=== PATIENT | female | born 1990 | race Caucasian/White ===

== ENCOUNTER 2019-05-19 13:02 | Inpatient (IN) ==
[2019-05-19] MEDS ORDERED: IOPAMIDOL 100 ML BOTTLE IV ONE (13:03)
[2019-05-19] MEDS ORDERED: ONDANSETRON 4 MG/2 ML VIAL IV ONE ×2 (13:08→16:35)
[2019-05-19] MEDS ORDERED: 0.9 % SODIUM CHLORIDE 1,000 ML IV ONE ×2 (13:08→19:13)
--- NOTE | 2019-05-19 13:23 | Emergency Department Note ---
Abdominal Pain HPI - General Chief Complaint: Abdominal Pain Stated Complaint: Side and back pain Time Seen by Provider: 05/19/19 13:08 Mode of arrival: wheelchair - History of Present Illness HPI Narrative: 29-year old patient presenting to the [facility] emergency department with a chief complaint of abdominal pain. Patient reports the pain is acute. Patient has had symptoms for days. Patient noting pain is sharp. Patient reporting pain is severe. Patient with exacerbating factors of time, states she was recently seen here for the same thing a couple days ago. Patient with ameliorating factors of pain medication. Patient with associated symptoms of feeling syncopal. Pt with witnessed "syncopal event" pt retained intentional motor function during the entire episode. Pt stated she felt like passing out and then closed her eyes and manintained truncal stability as well as purposeful LE motor function. Pt without loss of bowel bladder control also without sterotyped activity consistent with partial seizure disorder. Patient without associated symptoms of nausea, vomiting, diarrhea, decreased appetite, fever, blood in stool, hematemesis, constipation, dysuria, frequency, hematuria, weight loss, cough, shortness of breath, orthopnea, exertional component. - Related Data Home Medications Medication Instructions Recorded Confirmed buPROPion [Wellbutrin Xl] 450 mg PO DAILY 05/19/19 05/19/19 Allergies Allergy/AdvReac Type Severity Reaction Status Date / Time No Known Drug Allergies Allergy Verified 03/22/19 11:41 Review of Systems All systems ED: reviewed and negative except as stated. Abdominal Pain PMH - Past Medical History PMFSH Narrative: All Active Problems Abdominal pain (Acute) Elevated lipase (Acute) Elevated LFTs (Acute) Medical history: Reports: other (History of a bundle branch block but does not know anything more about it. Recently saw fundraising director and was cleared.) - Social History Smoking status: Former smoker Alcohol use: Reports: Rarely (Patient originally states that she used to be an alcoholic and was a heavy alcoholic for 5 or 6 years. States she stopped drinking 5 years ago. Originally stated she has had [place] no alcohol in 5 years but states now that she did have a glass of wine a month or so ago.) Drug use: Reports: none Physical Exam Vital signs are assessed for evidence of hemodynamic instability. General: Alert, interactive, appropriate Head: Atraumatic, normocephalic Eyes: Extraocular movements intact, PERRLA Neck: Trachea midline, full range of motion Chest: Symmetrical chest wall rise, clear to auscultation bilateral without wheezes rales crackles or rubs Cardiovascular: Patient with excellent perfusion to the extremities, regular rate and rhythm without M/R/G Abdomen: Patient with tenderness to the abdomen diffusely, patient without exam suggestive of peritonitis, nondistended, normoactive bowel sounds, no masses, no hepatosplenomegaly, no rebound, and no guarding Extremities: Full range of motion joints, warm well perfused Neuro: Alert, oriented x3, cranial nerves II through XII grossly intact, normal gait Psychiatric: Normal affect normal mood Course Vital Signs Temperature 97.1 F 05/19/19 13:03 Pulse Rate 71 05/19/19 13:03 Respiratory Rate 18 05/19/19 13:03 Blood Pressure 114/78 05/19/19 13:03 Pulse Oximetry (%) 95 05/19/19 13:03 Temperature 97.1 F 05/19/19 13:03 Pulse Rate 69 05/19/19 20:00 Respiratory Rate 18 05/19/19 13:03 Blood Pressure 125/91 05/19/19 20:00 Pulse Oximetry (%) 100 05/19/19 20:00 Abdominal Pain - MDM Narrative Medical decision making narrative: Initial work-up for this issue included consideration for the following laboratory evaluation CBC, CMP, lipase, urinalysis as well as imaging. Differential diagnosis considered included: Obstruction, perforation, mesenteric ischemia, Crohn's disease, ulcerative colitis, viral gastroenteritis, spontaneous bacterial peritonitis, ketoacidosis, adrenal insufficiency, foodborne illness, IBS, constipation, AAA, abdominal compartment syndrome, abdominal migraine, chronic abdominal pain, colonic pseudoobstruction, zoster, hypercalcemia, hypothyroidism, appendicitis, diverticulitis, nephrolithiasis, pyelonephritis, acute urinary retention, cystitis, colitis, pelvic inflammatory disease, ovarian torsion, ruptured ovarian cyst, endometriosis, endometritis, GC/chlamydia, fibroids, ovarian hyperstimulation, malignancy, salpingitis, tubo- ovarian abscess. After the above evaluation the conclusion for this case is pancreatitis by elevated lipase and abnormal CT scan, pt with gallstones but no dilated duct, denies significant alcohol intake, denies history of abnormal lipids. Pt with pain control using Toradol, fluids, and antiemetics. I discussed the case with Dr. Crook and the consensus opinion at this point time is patient requires admission and MRCP in the morning as well as hepatitis panel and expectant management with likely cholecystectomy. Discussed case with Dr. Jack who will admit the patient with Dr. Crook consulting. - Lab Data Result diagrams: 05/19/19 13:15 05/19/19 13:15 Lab Results 05/19/19 05/19/19 05/19/19 Range/Units 13:15 13:15 15:12 WBC 13.7 H (4.5-11.0) K/mcL RBC 5.62 H (4.00-5.20) M/mcL Hgb 15.6 H (12.0-15.0) g/dL Hct 45.5 (36.0-48.0) % MCV 81.0 (80.0-100.0) fL MCH 27.8 (26.0-34.0) pg MCHC 34.3 (31.0-36.0) g/dL RDW 13.1 (11.5-14.5) % Plt Count 479 H (140-440) K/mcL MPV 9.6 (7.4-10.4) fL Gran % 75.1 (38.0-78.0) % Lymph % (Auto) 16.3 (15.5-49.0) % Jasper % (Auto) 4.4 (1.0-12.0) % Eos % (Auto) 4.1 (0.0-7.0) % Baso % (Auto) 0.1 (0.0-2.0) % Gran # 10.3 H (1.8-8.0) K/mcL Lymph # (Auto) 2.2 (1.5-4.8) K/mcL Jasper # (Auto) 0.6 (0.1-0.9) K/mcL Eos # (Auto) 0.6 (0.0-0.7) K/mcL Baso # (Auto) 0 (0.0-0.3) K/mcL Sodium 138 (133-145) mmol/L Potassium 3.3 (3.3-5.1) mmol/L Chloride 100 (96-108) mmol/L Carbon Dioxide 18 L (22-30) mmol/L Anion Gap 20.0 H (8-16) BUN 11 (6-20) mg/dl Creatinine 0.7 (0.6-1.1) mg/dl GFR Calculation 115 Glucose 183 H (70-105) mg/dL Calcium 9.8 (8.6-10.4) mg/dl Total Bilirubin 3.5 H (0.0-1.0) mg/dL AST 1189 H (0-37) U/l ALT 1721 H (0-40) U/l Alkaline Phosphatase 209 H (39-117) U/L Total Protein 8.0 (5.9-8.4) gm/dL Albumin 4.7 (3.2-5.2) gm/dL Globulin 3.3 (2.2-3.7) gm/dL Albumin/Globulin Ratio 1.4 (1.0-2.3) Lipase 7120 H (7-60) U/L Urine Opiates Screen None detected (NONDETECTED) Ur Opiates Confirm Not Reportable Ur Oxycodone Screen None detected (NONDETECTED) Urine Methadone Screen None detected (NONDETECTED) Ur Methadone Confirm Not Reportable Ur Barbiturates Screen None detected (NONDETECTED) Ur Barbiturate Confirm Not Reportable Ur Phencyclidine Scrn None detected (NONDETECTED) Urine PCP Confirm Not Reportable Ur Amphetamines Screen None detected (NONDETECTED) U Amphetamines Confirm Not Reportable U Benzodiazepines Scrn None detected (NONDETECTED) U Benzodiazepine Confm Not Reportable Urine Cocaine Screen None detected (NONDETECTED) Urine Cocaine Confirm Not Reportable U Cannabinoids Confirm Not Reportable U Marijuana (THC) Screen None detected (NONDETECTED) Disposition Pt seen by STUDENT WORKER/PA only: No Clinical Impression: Pancreatitis Qualifiers: Chronicity: acute Pancreatitis type: other Acute pancreatitis complication: no infection or necrosis Qualified Code(s): K85.80 - Other acute pancreatitis without necrosis or infection Abdominal pain Qualifiers: Abdominal location: upper abdomen, unspecified Qualified Code(s): R10.10 - Upper abdominal pain, unspecified Disposition: Xfer As Outpt/Obs ([facility]) Condition: Good Instructions: Pancreatitis (ED) Referrals: Suki Hager MD [Primary Care Provider] -
[2019-05-19 13:41] LABS: Basophils # (Auto) 0 K/mcL (0.0-0.3); Basophils % (Auto) 0.1 % (0.0-2.0); Eosinophils # (Auto) 0.6 K/mcL (0.0-0.7); Eosinophils % (Auto) 4.1 % (0.0-7.0); Granulocytes % (Auto) 75.1 % (38.0-78.0); Hematocrit 45.5 % (36.0-48.0); Hemoglobin 15.6 g/dL (12.0-15.0); Lymphocytes # (Auto) 2.2 K/mcL (1.5-4.8); Lymphocytes % (Auto) 16.3 % (15.5-49.0); Mean Corpuscular HGB Conc 34.3 g/dL (31.0-36.0); Mean Platelet Volume 9.6 fL (7.4-10.4); Monocytes # (Auto) 0.6 K/mcL (0.1-0.9); Monocytes % (Auto) 4.4 % (1.0-12.0); Platelet Count 479 K/mcL (140-440); RBC 5.62 M/mcL (4.00-5.20); Red Cell Distribution Width 13.1 % (11.5-14.5); WBC 13.7 K/mcL (4.5-11.0)
[2019-05-19 14:00] LABS: Albumin 4.7 gm/dL (3.2-5.2); Albumin/Globulin Ratio 1.4 (1.0-2.3); Alkaline Phosphatase 209 U/L (39-117); Bilirubin,Total 3.5 mg/dL (0.0-1.0); Blood Urea Nitrogen 11 mg/dl (6-20); Calcium 9.8 mg/dl (8.6-10.4); Carbon Dioxide 18 mmol/L (22-30); Chloride 100 mmol/L (96-108); Globulin 3.3 gm/dL (2.2-3.7); Glomerular Filtration Rate 115; Glucose 183 mg/dL (70-105)
[2019-05-19] MEDS ORDERED: KETOROLAC 30 MG/ML VIAL IV ONE ×2 (14:07→19:53)
[2019-05-19 14:50] LABS: ALT/SGPT 1721 U/l (0-40); AST/SGOT 1189 U/l (0-37)
[2019-05-19 15:55] LABS: Amphetamine Screen,Urine NONE DETECTED (NONDETECTED); Barbiturate Screen,Urine NONE DETECTED (NONDETECTED); Benzodiazepines Screen,Urine NONE DETECTED (NONDETECTED); Cannabinoid Screen,Urine NONE DETECTED (NONDETECTED); Cocaine Screen,Urine NONE DETECTED (NONDETECTED); Opiate Screen,Urine NONE DETECTED (NONDETECTED); Oxycodone, Urine Screen NONE DETECTED (NONDETECTED); Phencyclidine Screen,Urine NONE DETECTED (NONDETECTED)
--- NOTE | 2019-05-19 18:04 | Cat Scan Report ---
History: Pancreatitis with pain radiating to the back TECHNIQUE: The patient was imaged following oral and intravenous contrast. Sagittal and coronal reformats were created. FINDINGS: The liver and spleen are normal in size and homogeneous. There is a 3 x 6 mm stone within the lumen of the gallbladder which has developed since a prior CT done on 03/22/19. Along the anterior wall of the gallbladder there is a 6 mm soft tissue nodule. This appears to be within the wall. On the prior CT there appear to be adjacent to but separate from the gallbladder. This is a nonspecific finding. The remainder the gallbladder wall is normal and there is no para cholecystic fluid collection. The bile ducts are nondilated and there are no stones within the common bile duct. There is mild generalized swelling throughout the pancreas. Mild edema is seen in the head and uncinate process. There is no pseudocyst. The pancreatic duct is nondilated and there are no calcifications in the pancreas. There is mild inflammation of the retroperitoneal fat surrounding the pancreas. The pancreatitis has developed since prior study done on 03/22/19. The adrenals and kidneys are normal. The aorta and inferior vena cava are normal. Small amount of ascites is present in the lower pelvis. No abnormality seen within the uterus, ovaries or bladder. The bowel gas pattern is normal. There is mild disc space narrowing at L3-4. IMPRESSION: Acute pancreatitis Cholelithiasis nonspecific 6 mm soft tissue nodule along the anterior wall of the fundus of the gallbladder Dr. Mayberry was called with the results Interpreted and Authenticated by: Abelardo Wheat 05/19/19
[2019-05-19 20:58] LABS: Triglycerides 170 mg/dl (<150)
[2019-05-19 21:13] LABS: Hepatitis B Surface Antigen NEGATIVE (NEGATIVE); Hepatitis C Virus Antibody NON REACTIVE (NEGATIVE)
--- NOTE | 2019-05-19 21:15 | Internal Med History&Physical ---
Medical - H&P: HPI Patient information: Note initiated : 05/19/19 at 9:07 pm Service Date, if different from initiated Date: [] Patient: Samaria Mayorga 29 y/o F admitted on for Side And Back Pain. Chief Complaint: [] History of present illness: Ms. Mayorga is a 29 year old F Who presents with severe abdominal pain that has been almost constant since yesterday. She describes the pain as initiating the right upper quadrant as severe burning pinching pain which typically wax and wane until yesterday. Has started radiating over the left upper quadrant as well. States she has had similar episodes in the past 2 months sometimes weekly. The last less than an hour. Most recent one started yesterday. She did have aches and toast for lunch started about an hour after that. She did drink alcohol on Friday. She typically drinks half a bottle of wine twice a week. She started drinking alcohol about a year ago prior to that she did not drink for 6 years. She denies any new medications or drug use. She gave about a year and a half ago. Does mention that her sister had to get her gallbladder removed after she gave this well. Symptoms often happen at night. And she states maybe 1 to 2 days after drinking but unsure if they correlate. She states the pain radiates around to the back. In the ER she had CT done which showed pancreatitis and cholelithiasis, as well as elevated liver enzymes greater than 25 times upper limit of normal. Lipase is quite elevated at 7000 and bilirubin 3.5. Case is discussed with Dr. Crook, based on presentation and imaging is felt that this is related to gallstone pancreatitis. Plan for eventual cholecystectomy. I did discuss case with Dr. Samayoa pompom maker was surprised on the elevation of liver enzymes and recommended Hepatitis panel and MRCP, ordered for tomorrow. Patient's vital signs are stable. She appears comfortable in bed. Patient denies needle use or exposure to hepatitis B. She did have an episode of nausea vomitus morning couple times in the ER. And some fever chills initially which is improved. Review of Systems: Pertinent positives as above. Denies headache/chest pain/cough/dyspnea/diarrhea. Remaining 10 point review of system reviewed negative Medical - H&P: PMH Medical history: Past medical history: Depression Surgical history: None Family history: Mother heart disease Father with alcoholism Social history: Patient denies tobacco drinks alcohol several times a week half a bottle of wine Denies drug use Medical - H&P: Meds Home Medications Medication Instructions Recorded Confirmed Type buPROPion [Wellbutrin Xl] 450 mg PO DAILY 05/19/19 05/19/19 History valACYclovir [Valtrex] 500 mg PO DAILY 05/19/19 05/19/19 History Allergies Allergy/AdvReac Type Severity Reaction Status Date / Time No Known Drug Allergies Allergy Verified 03/22/19 11:41 Medical - H&P: Exam - Constitutional Vitals: Temp Pulse Resp BP Pulse Ox 97.1 F 91 H 18 130/88 98 05/19/19 13:03 05/19/19 20:45 05/19/19 13:03 05/19/19 20:45 05/19/19 20:45 Exam: General: Alert, Awake, No acute Distress Eyes/N/T: EOMI, PEERL, Head/Neck: neck supple, normocephalic atraumatic CV: RRR, No murmurs, normal s1/s2 Pulm: Clear b/l, no wheezing/rhonchi/rales Abd: soft, TTP severe in epigastrium and moderate RUQ, Ext: no clubbing/cyanosis/edema Neuro: Alert, no focal deficits, moves all extremities, CN 2-12 grossly intact, symmetrical strength b/l upper/lower, sensations intact b/l upper/lower Skin: warm/dry Medical - H&P: Reslt - Labs CBC & Chem 7: 05/19/19 13:15 05/19/19 13:15 Labs: Short CBC 05/19/19 Range/Units 13:15 WBC 13.7 H (4.5-11.0) K/mcL Hgb 15.6 H (12.0-15.0) g/dL Hct 45.5 (36.0-48.0) % Plt Count 479 H (140-440) K/mcL BMP 05/19/19 13:15 Sodium 138 Potassium 3.3 Chloride 100 Carbon Dioxide 18 L BUN 11 Creatinine 0.7 Glucose 183 H Calcium 9.8 Liver Function 05/19/19 Range/Units 13:15 Total Bilirubin 3.5 H (0.0-1.0) mg/dL AST 1189 H (0-37) U/l ALT 1721 H (0-40) U/l Alkaline Phosphatase 209 H (39-117) U/L Albumin 4.7 (3.2-5.2) gm/dL - Impressions CT abdomen with pancreatitis and cholelithiasis Medical - H&P: A/P - Narrative A/P Narrative: A: *Acute pancreatitis: suspect gallstone pancreatitis vs ?etoh -Trip/Calcium ok, no trauma/steroids, UDS neg -lipase 7000 on admit -Dixon's score low @2 *Transaminitis, Hepatocellular: 2/2 ?above vs Viral vs *Hyperbilirubinemia: 2/2 above *Depression * P: -aggressive IVF's -sips/chips -pain control, antiemetics -Dr. Crook following for eventual cholecystectomy -MRCP in AM -Hepatitis panel pending -If LFT's/bili worsen will need further w/u and GI consult, possibly transfer -case discussed with GI -ppx: SCD/Ambulation
[2019-05-19 21:20] LABS: Lactate Dehydrogenase 922 U/L (94-250)
[2019-05-19] MEDS ORDERED: POTASSIUM CHLORIDE 20 MEQ TABLET PO PRN (22:19)
[2019-05-19] MEDS ORDERED: SENNOSIDES 1 TABLET PO PRN (22:19)
[2019-05-19] MEDS ORDERED: PROMETHAZINE 12.5 MG SUPP.RECT PR PRN (22:19)
[2019-05-19] MEDS ORDERED: POTASSIUM CHLORIDE 40 MEQ in DEXTROSE 5% IN WATER 500 ML IV PRN (22:19)
[2019-05-19] MEDS ORDERED: MAGNESIUM SULFATE 2 GM/50 ML BAG IV PRN (22:19)
[2019-05-19] MEDS ORDERED: POLYETHYLENE GLYCOL 3350 17 GM PACKET PO PRN (22:19)
[2019-05-19] MEDS: 0.9 % SODIUM CHLORIDE 10 ML SYRINGE IV SCH (22:24)
[2019-05-19] MEDS: 0.9 % SODIUM CHLORIDE 1,000 ML IV SCH (22:31)
[2019-05-19] MEDS: ONDANSETRON 4 MG/2 ML VIAL IV PRN (22:46)
[2019-05-19] MEDS: DOCUSATE SODIUM 100 MG CAPSULE PO SCH (22:48)
[2019-05-19 23:58] LABS: Prothrombin Time 13.7 sec (11.9-14.5)
[2019-05-20] MEDS: 0.9 % SODIUM CHLORIDE 1,000 ML IV SCH ×5 (02:31→20:54)
[2019-05-20] MEDS: ONDANSETRON 4 MG/2 ML VIAL IV PRN ×3 (03:00→19:37)
[2019-05-20] MEDS: 0.9 % SODIUM CHLORIDE 10 ML SYRINGE IV SCH ×3 (05:38→22:02)
[2019-05-20 06:26] LABS: INR 1.2 (0.9-1.1); Prothrombin Time 15.3 sec (11.9-14.5)
[2019-05-20 06:29] LABS: Basophils # (Auto) 0 K/mcL (0.0-0.3); Basophils % (Auto) 0.3 % (0.0-2.0); Eosinophils # (Auto) 0.1 K/mcL (0.0-0.7); Eosinophils % (Auto) 0.9 % (0.0-7.0); Granulocytes % (Auto) 85.9 % (38.0-78.0); Hematocrit 36.2 % (36.0-48.0); Hemoglobin 11.9 g/dL (12.0-15.0); Lymphocytes # (Auto) 1.2 K/mcL (1.5-4.8); Lymphocytes % (Auto) 9.5 % (15.5-49.0); Mean Cell Volume 81.3 fL (80.0-100.0); Mean Corpuscular HGB Conc 32.7 g/dL (31.0-36.0); Mean Platelet Volume 9.4 fL (7.4-10.4); Monocytes # (Auto) 0.4 K/mcL (0.1-0.9); Monocytes % (Auto) 3.4 % (1.0-12.0); Platelet Count 288 K/mcL (140-440); RBC 4.46 M/mcL (4.00-5.20); Red Cell Distribution Width 13.3 % (11.5-14.5); WBC 12.4 K/mcL (4.5-11.0)
[2019-05-20 07:21] LABS: AST/SGOT 412 U/l (0-37); Albumin 3.7 gm/dL (3.2-5.2); Albumin/Globulin Ratio 1.5 (1.0-2.3); Alkaline Phosphatase 176 U/L (39-117); Bilirubin,Direct 1.5 mg/dL (0.0-0.3); Bilirubin,Total 2.1 mg/dL (0.0-1.0); Blood Urea Nitrogen 6 mg/dl (6-20); Calcium 7.5 mg/dl (8.6-10.4); Carbon Dioxide 21 mmol/L (22-30); Chloride 106 mmol/L (96-108); Globulin 2.4 gm/dL (2.2-3.7); Glomerular Filtration Rate 129; Glucose 94 mg/dL (70-105); Lactate Dehydrogenase 384 U/L (94-250); Phosphorous 2.7 mg/dL (2.7-4.5); Triglycerides 57 mg/dl (<150); Uric Acid 3.4 mg/dL (2.5-8.0)
[2019-05-20 07:36] LABS: ALT/SGPT 1077 U/l (0-40)
--- NOTE | 2019-05-20 07:45 | Internal Med Progress Note ---
Medical - PN: Subj Patient information: Note initiated : 05/20/19 at 7:38 am Service Date, if different from initiated Date: [] Patient: Bri Mayorga a 29 y/o F admitted on 05/19/19 for Side And Back Pain. Chief Complaint: [] Interval history: Ms. Mayorga is a 29 year old F Who presents with severe abdominal pain that has been almost constant since yesterday. She describes the pain as initiating the right upper quadrant as severe burning pinching pain which typically wax and wane until yesterday. Has started radiating over the left upper quadrant as well. States she has had similar episodes in the past 2 months sometimes weekly. The last less than an hour. Most recent one started yesterday. She did have aches and toast for lunch started about an hour after that. She did drink alcohol on Friday. She typically drinks half a bottle of wine twice a week. She started drinking alcohol about a year ago prior to that she did not drink for 6 years. She denies any new medications or drug use. She gave about a year and a half ago. Does mention that her sister had to get her gallbladder removed after she gave this well. Symptoms often happen at night. And she states maybe 1 to 2 days after drinking but unsure if they correlate. She states the pain radiates around to the back. In the ER she had CT done which showed pancreatitis and cholelithiasis, as well as elevated liver enzymes greater than 25 times upper limit of normal. Lipase is quite elevated at 7000 and bilirubin 3.5. Case is discussed with Dr. Crook, based on presentation and imaging is felt that this is related to gallstone pancreatitis. Plan for eventual cholecystectomy. I did discuss case with Dr. Samayoa automatic equipment technician was surprised on the elevation of liver enzymes and recommended Hepatitis panel and MRCP, ordered for tomorrow. Patient's vital signs are stable. She appears comfortable in bed. Patient denies needle use or exposure to hepatitis B. She did have an episode of nausea vomitus morning couple times in the ER. And some fever chills initially which is improved. 05/20 Able to get some sleep last night. Abdominal pain still present but better controlled with pain medications. Has some nausea this morning but no vomiting. All labs improving today. Awaiting MRCP today. Review of Systems: denies headache/fever/chills/vomiting/chest pain/cough/dyspnea/diarrhea. Otherwise see above. - Constitutional Vitals: Vital Signs Temp Pulse Resp BP Pulse Ox 98.4 F 91 H 16 119/71 98 05/20/19 07:08 05/20/19 07:08 05/20/19 07:08 05/20/19 07:08 05/20/19 07:08 Period Temp Pulse Resp BP Sys/Martinez Pulse Ox Last 24 Hr 97.1 F-98.5 F 57-91 16-18 114-130/68-91 95-100 Intake and Output 05/19/19 05/20/19 05/20/19 21:59 05:59 13:59 Intake Total 1999 1060 1000 Balance 1999 1060 1000 Weight 68.492 kg Intake & Output: Intake & Output 05/19/19 05/20/19 05/20/19 21:59 05:59 13:59 Intake Total 1999 1060 1000 Balance 1999 1060 1000 Weight 68.492 kg Intake: IV 1999 1000 1000 Sodium Chloride 0.9% 1,000 ml @ 1999 1000 1000 250 mls/hr IV .Q4H [facility] Rx#: [id number] Oral 60 Other: Urine Appearance Clear Urine Color Bright Yellow Urine Odor Normal # Voids 1 1 # Emeses 3 Exam: General: Alert, Awake, No acute Distress Eyes/N/T: EOMI, , Head/Neck: neck supple, CV: RRR, No murmurs, Pulm: Clear b/l, no wheezing/rhonchi/rales Abd: soft, TTP epigastrium/RUQ Ext: no clubbing/cyanosis/edema Neuro: Alert, no focal deficits, moves all extremities, Skin: warm/dry Medical - PN: Obj Da - Labs CBC & Chem 7: 05/20/19 04:51 05/20/19 04:51 Labs: Abnormal Lab Results 05/20/19 05/20/19 05/20/19 04:51 04:51 04:51 WBC 12.4 H RBC Hgb 11.9 L Plt Count Gran % 85.9 H Lymph % (Auto) 9.5 L Gran # 10.7 H Lymph # (Auto) 1.2 L PT 15.3 H INR 1.2 H Carbon Dioxide 21 L Anion Gap Creatinine 0.5 L Glucose Calcium 7.5 L Total Bilirubin 2.1 H Direct Bilirubin 1.5 H GGT 520 H AST 412 H ALT 1077 H Alkaline Phosphatase 176 H Lactate Dehydrogenase 384 H Triglycerides Lipase 05/20/19 05/19/19 05/19/19 04:51 13:26 13:15 WBC RBC Hgb Plt Count Gran % Lymph % (Auto) Gran # Lymph # (Auto) PT INR Carbon Dioxide Anion Gap Creatinine Glucose Calcium Total Bilirubin Direct Bilirubin 2.7 H GGT AST ALT Alkaline Phosphatase Lactate Dehydrogenase 922 H Triglycerides 170 H Lipase 927 H 05/19/19 05/19/19 13:15 13:15 WBC 13.7 H RBC 5.62 H Hgb 15.6 H Plt Count 479 H Gran % Lymph % (Auto) Gran # 10.3 H Lymph # (Auto) PT INR Carbon Dioxide 18 L Anion Gap 20.0 H Creatinine Glucose 183 H Calcium Total Bilirubin 3.5 H Direct Bilirubin GGT AST 1189 H ALT 1721 H Alkaline Phosphatase 209 H Lactate Dehydrogenase Triglycerides Lipase 7120 H Meds: Medications Bupropion HCl (Wellbutrin Xl) 450 mg PO DAILY [facility] Docusate Sodium (Colace) 100 mg PO BID [facility] Last Admin: 05/19/19 22:48 Dose: 100 mg Documented by: Potassium Chloride 40 meq/ (Dextrose) 520 mls @ 130 mls/hr IV UD PRN PRN Reason: Potassium < 3 Magnesium Sulfate (Magnesium Sulfate) 2 gm in 50 mls @ 50 mls/hr IV UD PRN PRN Reason: Magnesium </= 1.6 Sodium Chloride (Sodium Chloride 0.9%) 1,000 mls @ 250 mls/hr IV .Q4H [facility] Last Admin: 05/20/19 06:56 Dose: 250 mls/hr Documented by: Morphine Sulfate (Morphine) 0 mg IV Q3HP PRN PRN Reason: Pain Last Admin: 05/20/19 06:55 Dose: 2 mg Documented by: Ondansetron HCl (Zofran) 4 mg IV Q4HP PRN PRN Reason: Nausea And Vomiting Last Admin: 05/20/19 06:55 Dose: 4 mg Documented by: Polyethylene Glycol (Miralax) 17 gm PO DAILYP PRN PRN Reason: Constipation Potassium Chloride (Kdur) 40 meq PO UD PRN PRN Reason: Potssium is 3-3.5 Potassium Chloride (Kdur) 40 meq PO UD PRN PRN Reason: Potassium < 3 Promethazine HCl (Phenergan) 12.5 mg DC Q6HP PRN PRN Reason: Pain Senna (Senokot) 2 tab PO HSP PRN PRN Reason: Constipation Sodium Chloride (Saline Flush) 10 ml IV Q8 [facility] Last Admin: 05/20/19 05:38 Dose: Not Given Documented by: Medical - PN: A/P - Time Spent With Patient Total time spent is greater than 50% in coordination of care (as documented) at patient's floor/unit and/or counseling patient: - Narrative A/P Narrative: A: *Acute pancreatitis: suspect gallstone pancreatitis vs ?etoh -Trigs/Calcium ok, no trauma/steroids, UDS neg -lipase 7000 on admit -Uri's score low @2 on admit *Transaminitis, Hepatocellular: 2/2 above from likely biliary stone passing vs Viral vs -hepatitis panel negative, UDS/APAP neg -improved *Hyperbilirubinemia: 2/2 above -2.1<3.5 *Depression * P: -aggressive IVF's will to decrease today -sips/chips, advance to clears for lunch -pain control, antiemetics -Dr. Crook following for eventual cholecystectomy -MRCP pending -case discussed with GI -ppx: SCD/Ambulation Medical - PN: Qual - Stroke Symptom Onset Unknown: No - VTE Deep Vein Thrombosis/Pulmonary Embolism Present on Admission: No
[2019-05-20 09:12] LABS: Appearance,Urine CLEAR; Bacteria,Urine 0 /hpf (0); Color,Urine AMBER; Culture Indicated,Urine NO; Glucose,Urine (UA) NEGATIVE (NEG); Ictotest,Urine POS (NEG); Ketones,Urine NEG (NEG); Leukocyte Esterase,Urine NEG /uL (NEG); Mucus,Urine MANY /hpf (0); Nitrate,Urine NEG (NEG); Protein,Urine NEG (NEG); Specific Gravity,Urine 1.018 (1.000-1.035); Urine Blood 0.2 mg/dL (<0.03); Urine RBC 1 /hpf (0-1); Urine Squamous Epithelial Cell 10 /hpf (0-4); Urine WBC 5 /hpf (0-4)
[2019-05-20] MEDS ORDERED: PROMETHAZINE 25 MG/ML VIAL IV PRN (09:31)
[2019-05-20] MEDS: HYDROmorphone 2 MG/ML VIAL IV PRN ×6 (10:07→23:55)
[2019-05-20] MEDS: DOCUSATE SODIUM 100 MG CAPSULE PO SCH ×2 (10:08→20:50)
[2019-05-20] MEDS: buPROPion 150 MG TAB.XL.24H PO SCH ×3 (10:08→11:55)
--- NOTE | 2019-05-20 10:29 | Magnetic Resonance Report ---
History: Pancreatitis, elevated liver enzymes, elevated lipase and bilirubin levels, nausea and right upper quadrant pain TECHNIQUE: Multiplanar imaging was performed using multiple pulse sequences. Reformatted MRCP images were created. FINDINGS: The liver is normal in size and slightly heterogeneous. There is no evidence of a mass. The spleen is normal in size and homogeneous. There is a nodule in the wall of the distal gallbladder fundus, which extends exophytically. It Measures approximately 9 x 12 mm in size. This was seen on yesterday's CT scan but is more apparent on today's MRI. The small stone seen within the gallbladder on yesterday's CT is again seen layering posteriorly. Adjacent wall is not abnormally thickened. The intra and extrahepatic bile ducts are normal in caliber. The common duct measures up to 4 mm. There is no evidence of a stone or mass in or adjacent to the distal common bile duct. The pancreas is swollen and there is mild diffuse inflammation. There is edema in the surrounding retroperitoneal fat. Is also trace amount of ascites anterior to the right kidney and adjacent to the inferior aspect of the right lobe of the liver. No abscess is present and there is no pseudocyst. The pancreatic duct is nondilated. There is no evidence of pancreas divisum The adrenals and kidneys are normal. The aorta is normal in caliber. IMPRESSION: Mild generalized pancreatitis with surrounding edema/inflammation in a tiny amount ascites. Nonspecific subtle heterogeneity of the liver parenchyma Cholelithiasis Soft tissue mass in the wall of the gallbladder fundus. Nondilated bile ducts and pancreatic duct Interpreted and Authenticated by: Abelardo Wheat 05/20/19
[2019-05-20] MEDS: POTASSIUM CHLORIDE 20 MEQ TABLET PO PRN (15:54)
--- NOTE | 2019-05-20 17:45 | General Surgery Consult Note ---
History of Present Illness Patient information: Note initiated : 05/20/19 at 5:43 pm Service Date, if different from initiated Date: [] Patient: Bri Mayorga 29 y/o F admitted on 05/19/19 for Side And Back Pain. Chief Complaint: [] Reason for consult: abdominal pain Requesting physician: Royal Jack History of present illness: 29-year-old female admitted with history of upper abdominal pain with nausea and vomiting dating back to Friday. The pain became increasing in severity. She has a history of increased alcohol intake recently. Evaluation revealed markedly elevated amylase, lipase and LFTs. She had a similar episode on February 2019. At that time she had minimal elevation of her ALT and AST with normal bilirubin and alkaline phosphatase. Evaluation this time reveals small gallstone in the gallbladder but with normal ducts. Hepatitis screen for A, B, and C are negative. MRCP shows changes of the pancreas compatible with acute pa ncreatitis. Her common bile duct measures 4 mm without evidence of common bile duct stone. There is a soft tissue mass in the wall of the gallbladder. I am consult because of the presence of gallstones try to determine whether or not she has gallbladder disease as the cause for the severe pancreatitis and hepatitis. Review of Systems All systems PM: reviewed and no additional remarkable complaints except as stated (negative except as noted above) Past History Past medical history: Chronic depression Past surgical history: No surgical procedures Past family history: Mother age 51 with hypertension. Father age 57 with history of alcohol disease Past social history: . Former smoker. Positive alcohol use. Denies drug use Medications and Allergies Home Medications Medication Instructions Recorded Confirmed Type buPROPion [Wellbutrin Xl] 300 mg PO DAILY 05/19/19 06/01/19 History valACYclovir [Valtrex] 500 mg PO DAILY 05/19/19 06/01/19 History albuterol sulfate INHALATION PRN 06/01/19 06/01/19 History Allergies Allergy/AdvReac Type Severity Reaction Status Date / Time No Known Drug Allergies Allergy Verified 06/01/19 10:04 Exam Temp Pulse Resp BP Pulse Ox 98.0 F 79 16 114/70 99 05/20/19 16:00 05/20/19 16:00 05/20/19 16:00 05/20/19 16:00 05/20/19 16:00 - General physical appearance well developed, well nourished, no distress - Eyes PERRL, normal ocular movement. negative: icteric - ENT normal pinna, normal nares, normal mucosa, no hearing loss, no congestion - Head Head exam IM: Present: atraumatic, normocephalic - Neck no masses, no bruits, trachea midline, no lymphadenopathy, no venous distension - Cardiovascular Cardiovascular exam IM: Present: normal rate and rhythm - Respiratory normal expansion, normal respiratory effort, clear to percussion, clear to auscultation - Abdomen Abdomen: Present: soft, tender (diffuse abdominal distention with mild tenderness in both upper quadrants and epigastrium; no palpable masses), bowel sounds Hernia: Present: none - Genitourinary Present: normal external genitalia - Integumentary Present: no rash, no growths, no abnormal pigmentation - Neurologic Present: normal coordination, normal sensation, other (no evidence of tremor) - Musculoskeletal Present: normal gait, normal posture - Psychiatric Present: oriented to time, oriented to person, oriented to place, speech is normal, memory intact Results - Labs 05/23/19 05:08 05/23/19 05:08 Abnormal lab results 05/19/19 05/19/19 05/19/19 Range/Units 13:15 13:26 15:00 WBC (4.5-11.0) K/mcL Hgb (12.0-15.0) g/dL Gran % (38.0-78.0) % Lymph % (Auto) (15.5-49.0) % Gran # (1.8-8.0) K/mcL Lymph # (Auto) (1.5-4.8) K/mcL PT (11.9-14.5) sec INR (0.9-1.1) Carbon Dioxide (22-30) mmol/L Creatinine (0.6-1.1) mg/dl Calcium (8.6-10.4) mg/dl Total Bilirubin (0.0-1.0) mg/dL Direct Bilirubin 2.7 H (0.0-0.3) mg/dL GGT (5-36) U/L AST (0-37) U/l ALT (0-40) U/l Alkaline Phosphatase (39-117) U/L Lactate Dehydrogenase 922 H (94-250) U/L Triglycerides 170 H (<150) mg/dl Lipase (7-60) U/L Urine Occult Blood 0.2 A (<0.03) mg/dL Urine Bilirubin 2.0 A (NEG) mg/dL Urine Ictotest Pos A (NEG) Urine Urobilinogen 4.0 A (NEG) mg/dL Urine WBC 5 H (0-4) /hpf Ur Squamous Epith Cells 10 H (0-4) /hpf Urine Mucus Many A (0) /hpf 05/20/19 05/20/19 05/20/19 Range/Units 04:51 04:51 04:51 WBC 12.4 H (4.5-11.0) K/mcL Hgb 11.9 L (12.0-15.0) g/dL Gran % 85.9 H (38.0-78.0) % Lymph % (Auto) 9.5 L (15.5-49.0) % Gran # 10.7 H (1.8-8.0) K/mcL Lymph # (Auto) 1.2 L (1.5-4.8) K/mcL PT (11.9-14.5) sec INR (0.9-1.1) Carbon Dioxide 21 L (22-30) mmol/L Creatinine 0.5 L (0.6-1.1) mg/dl Calcium 7.5 L (8.6-10.4) mg/dl Total Bilirubin 2.1 H (0.0-1.0) mg/dL Direct Bilirubin 1.5 H (0.0-0.3) mg/dL GGT 520 H (5-36) U/L AST 412 H (0-37) U/l ALT 1077 H (0-40) U/l Alkaline Phosphatase 176 H (39-117) U/L Lactate Dehydrogenase 384 H (94-250) U/L Triglycerides (<150) mg/dl Lipase 927 H (7-60) U/L Urine Occult Blood (<0.03) mg/dL Urine Bilirubin (NEG) mg/dL Urine Ictotest (NEG) Urine Urobilinogen (NEG) mg/dL Urine WBC (0-4) /hpf Ur Squamous Epith Cells (0-4) /hpf Urine Mucus (0) /hpf 05/20/19 Range/Units 04:51 WBC (4.5-11.0) K/mcL Hgb (12.0-15.0) g/dL Gran % (38.0-78.0) % Lymph % (Auto) (15.5-49.0) % Gran # (1.8-8.0) K/mcL Lymph # (Auto) (1.5-4.8) K/mcL PT 15.3 H (11.9-14.5) sec INR 1.2 H (0.9-1.1) Carbon Dioxide (22-30) mmol/L Creatinine (0.6-1.1) mg/dl Calcium (8.6-10.4) mg/dl Total Bilirubin (0.0-1.0) mg/dL Direct Bilirubin (0.0-0.3) mg/dL GGT (5-36) U/L AST (0-37) U/l ALT (0-40) U/l Alkaline Phosphatase (39-117) U/L Lactate Dehydrogenase (94-250) U/L Triglycerides (<150) mg/dl Lipase (7-60) U/L Urine Occult Blood (<0.03) mg/dL Urine Bilirubin (NEG) mg/dL Urine Ictotest (NEG) Urine Urobilinogen (NEG) mg/dL Urine WBC (0-4) /hpf Ur Squamous Epith Cells (0-4) /hpf Urine Mucus (0) /hpf Diabetes panel 05/19/19 05/20/19 Range/Units 13:26 04:51 Sodium 140 (133-145) mmol/L Potassium 3.3 (3.3-5.1) mmol/L Chloride 106 (96-108) mmol/L Carbon Dioxide 21 L (22-30) mmol/L BUN 6 (6-20) mg/dl Creatinine 0.5 L (0.6-1.1) mg/dl Glucose 94 (70-105) mg/dL Calcium 7.5 L (8.6-10.4) mg/dl AST 412 H (0-37) U/l ALT 1077 H (0-40) U/l Alkaline Phosphatase 176 H (39-117) U/L Total Protein 6.1 (5.9-8.4) gm/dL Albumin 3.7 (3.2-5.2) gm/dL Triglycerides 170 H 57 (<150) mg/dl Calcium panel 11/21/19 Range/Units 04:51 Calcium 7.5 L (8.6-10.4) mg/dl Phosphorus 2.7 (2.7-4.5) mg/dL Albumin 3.7 (3.2-5.2) gm/dL Pituitary panel 05/20/19 Range/Units 04:51 Sodium 140 (133-145) mmol/L Potassium 3.3 (3.3-5.1) mmol/L Chloride 106 (96-108) mmol/L Carbon Dioxide 21 L (22-30) mmol/L BUN 6 (6-20) mg/dl Creatinine 0.5 L (0.6-1.1) mg/dl Glucose 94 (70-105) mg/dL Calcium 7.5 L (8.6-10.4) mg/dl Adrenal panel 05/20/19 Range/Units 04:51 Sodium 140 (133-145) mmol/L Potassium 3.3 (3.3-5.1) mmol/L Chloride 106 (96-108) mmol/L Carbon Dioxide 21 L (22-30) mmol/L BUN 6 (6-20) mg/dl Creatinine 0.5 L (0.6-1.1) mg/dl Glucose 94 (70-105) mg/dL Calcium 7.5 L (8.6-10.4) mg/dl Total Bilirubin 2.1 H (0.0-1.0) mg/dL AST 412 H (0-37) U/l ALT 1077 H (0-40) U/l Alkaline Phosphatase 176 H (39-117) U/L Total Protein 6.1 (5.9-8.4) gm/dL Albumin 3.7 (3.2-5.2) gm/dL All other labs normal. Assessment and Plan (1) Acute hepatitis Liver enzyme changes are more compatible with an acute toxic percent. Since the hepatitis screens are negative. Alcohol is the most likely etiology Status: Acute (2) Acute pancreatitis Alcohol is the most likely single agent that would cause this severely of pancreatitis as well as a Status: Acute Qualifiers: Pancreatitis type: alcohol induced Acute pancreatitis complication: no infection or necrosis Qualified Code(s): K85.20 - Alcohol induced acute pancreatitis without necrosis or infection (3) Cholelithiasis Though the patient has gallbladder stones. It is unlikely that a gallbladder stone which passed what caused the level of inflammation of the pancreas and the liver. Status: Acute
[2019-05-21] MEDS: ONDANSETRON 4 MG/2 ML VIAL IV PRN ×3 (03:00→14:47)
[2019-05-21] MEDS: HYDROmorphone 2 MG/ML VIAL IV PRN ×8 (03:02→23:21)
[2019-05-21] MEDS: 0.9 % SODIUM CHLORIDE 1,000 ML IV SCH (04:59)
[2019-05-21] MEDS: 0.9 % SODIUM CHLORIDE 10 ML SYRINGE IV SCH ×3 (04:59→20:40)
[2019-05-21 06:17] LABS: Basophils # (Auto) 0 K/mcL (0.0-0.3); Basophils % (Auto) 0.2 % (0.0-2.0); Eosinophils # (Auto) 0.2 K/mcL (0.0-0.7); Eosinophils % (Auto) 1.8 % (0.0-7.0); Granulocytes % (Auto) 81.3 % (38.0-78.0); Hematocrit 36.7 % (36.0-48.0); Hemoglobin 12.2 g/dL (12.0-15.0); Lymphocytes # (Auto) 1.4 K/mcL (1.5-4.8); Lymphocytes % (Auto) 11.8 % (15.5-49.0); Mean Cell Volume 83.2 fL (80.0-100.0); Mean Corpuscular HGB Conc 33.3 g/dL (31.0-36.0); Mean Platelet Volume 9.1 fL (7.4-10.4); Monocytes # (Auto) 0.6 K/mcL (0.1-0.9); Monocytes % (Auto) 4.9 % (1.0-12.0); Platelet Count 287 K/mcL (140-440); RBC 4.41 M/mcL (4.00-5.20); Red Cell Distribution Width 14.3 % (11.5-14.5); WBC 11.9 K/mcL (4.5-11.0)
[2019-05-21 06:33] LABS: INR 1.2 (0.9-1.1); Prothrombin Time 14.8 sec (11.9-14.5)
[2019-05-21 06:37] LABS: ALT/SGPT 694 U/l (0-40); AST/SGOT 137 U/l (0-37); Albumin 3.8 gm/dL (3.2-5.2); Albumin/Globulin Ratio 1.4 (1.0-2.3); Alkaline Phosphatase 174 U/L (39-117); Bilirubin,Direct 0.4 mg/dL (0.0-0.3); Blood Urea Nitrogen 3 mg/dl (6-20); Calcium 8.3 mg/dl (8.6-10.4); Carbon Dioxide 27 mmol/L (22-30); Chloride 104 mmol/L (96-108); Globulin 2.7 gm/dL (2.2-3.7); Glomerular Filtration Rate 121; Glucose 97 mg/dL (70-105); Lactate Dehydrogenase 208 U/L (94-250); Phosphorous 1.9 mg/dL (2.7-4.5); Triglycerides 102 mg/dl (<150); Uric Acid 3.2 mg/dL (2.5-8.0)
[2019-05-21] MEDS ORDERED: POTASSIUM PHOSPHATE 20 MEQ in DEXTROSE 5% IN WATER 250 ML IV ONE (07:47)
--- NOTE | 2019-05-21 07:50 | Internal Med Progress Note ---
Medical - PN: Subj Patient information: Note initiated : 05/21/19 at 7:44 am Service Date, if different from initiated Date: [] Patient: Bri Mayorga a 29 y/o F admitted on 05/19/19 for Side And Back Pain. Chief Complaint: [] Interval history: Ms. Mayorga is a 29 year old F Who presents with severe abdominal pain that has been almost constant since yesterday. She describes the pain as initiating the right upper quadrant as severe burning pinching pain which typically wax and wane until yesterday. Has started radiating over the left upper quadrant as well. States she has had similar episodes in the past 2 months sometimes weekly. The last less than an hour. Most recent one started yesterday. She did have aches and toast for lunch started about an hour after that. She did drink alcohol on Friday. She typically drinks half a bottle of wine twice a week. She started drinking alcohol about a year ago prior to that she did not drink for 6 years. She denies any new medications or drug use. She gave about a year and a half ago. Does mention that her sister had to get her gallbladder removed after she gave this well. Symptoms often happen at night. And she states maybe 1 to 2 days after drinking but unsure if they correlate. She states the pain radiates around to the back. In the ER she had CT done which showed pancreatitis and cholelithiasis, as well as elevated liver enzymes greater than 25 times upper limit of normal. Lipase is quite elevated at 7000 and bilirubin 3.5. Case is discussed with Dr. Crook, based on presentation and imaging is felt that this is related to gallstone pancreatitis. Plan for eventual cholecystectomy. I did discuss case with Dr. [place] bus system operator was surprised on the elevation of liver enzymes and recommended Hepatitis panel and MRCP, ordered for tomorrow. Patient's vital signs are stable. She appears comfortable in bed. Patient denies needle use or exposure to hepatitis B. She did have an episode of nausea vomitus morning couple times in the ER. And some fever chills initially which is improved. 05/20 Able to get some sleep last night. Abdominal pain still present but better controlled with pain medications. Has some nausea this morning but no vomiting. All labs improving today. Awaiting MRCP today. 05/21 Patient is a little anxious overnight. Is showing some improvement. Still has the abdominal pain which is crampy and epigastric. No recent bowel movements. She is not vomiting anymore but still has occasional nausea. Occasional headache. Seen by general surgery yesterday. Review of Systems: denies headache/fever/chills/vomiting/chest pain/cough/dyspnea/diarrhea. Otherwise see above. - Constitutional Vitals: Vital Signs Temp Pulse Resp BP Pulse Ox 98.8 F 99 H 20 120/75 98 05/21/19 07:09 05/21/19 03:10 05/21/19 07:09 05/21/19 07:09 05/21/19 07:09 Period Temp Pulse Resp BP Sys/Martinez Pulse Ox Last 24 Hr 97.7 F-98.8 F 79-100 12-20 113-126/70-85 97-99 Intake and Output 05/20/19 05/21/19 05/21/19 21:59 05:59 13:59 Intake Total 2110 400 Output Total 1100 1300 Balance 1010 -900 Weight 65.998 kg Intake & Output: Intake & Output 05/20/19 05/21/19 05/21/19 21:59 05:59 13:59 Intake Total 2110 400 Output Total 1100 1300 Balance 1010 -900 Weight 65.998 kg Intake: IV 1910 Sodium Chloride 0.9% 1,000 ml @ 1910 125 mls/hr IV .Q8H [facility] Rx#: [id number] Oral 200 400 Output: Urine Catheter Amount 650 Void Amount 1100 650 Other: Urine Appearance Clear Clear Urine Color Bright Yellow Bright Yellow Exam: General: Alert, Awake, No acute Distress Eyes/N/T: EOMI, , Head/Neck: neck supple, CV: RRR, No murmurs, Pulm: Clear b/l, no wheezing/rhonchi/rales Abd: soft, TTP epigastrium/RUQ Ext: no clubbing/cyanosis, nonpitting trace edema LE's Neuro: Alert, no focal deficits, moves all extremities, Skin: warm/dry Medical - PN: Obj Da - Labs CBC & Chem 7: 05/21/19 04:47 05/21/19 04:47 Labs: Abnormal Lab Results 05/21/19 05/21/19 05/21/19 04:47 04:47 04:47 WBC RBC Hgb Plt Count Gran % Lymph % (Auto) Gran # Lymph # (Auto) PT 14.8 H INR 1.2 H Carbon Dioxide Anion Gap BUN 3 L Creatinine Glucose Calcium 8.3 L Phosphorus 1.9 L Total Bilirubin Direct Bilirubin 0.4 H GGT 440 H AST 137 H ALT 694 H Alkaline Phosphatase 174 H Lactate Dehydrogenase Triglycerides Lipase 143 H Urine Occult Blood Urine Bilirubin Urine Ictotest Urine Urobilinogen Urine WBC Ur Squamous Epith Cells Urine Mucus 05/21/19 05/20/19 05/20/19 04:47 04:51 04:51 WBC 11.9 H RBC Hgb Plt Count Gran % 81.3 H Lymph % (Auto) 11.8 L Gran # 9.7 H Lymph # (Auto) 1.4 L PT 15.3 H INR 1.2 H Carbon Dioxide 21 L Anion Gap BUN Creatinine 0.5 L Glucose Calcium 7.5 L Phosphorus Total Bilirubin 2.1 H Direct Bilirubin 1.5 H GGT 520 H AST 412 H ALT 1077 H Alkaline Phosphatase 176 H Lactate Dehydrogenase 384 H Triglycerides Lipase Urine Occult Blood Urine Bilirubin Urine Ictotest Urine Urobilinogen Urine WBC Ur Squamous Epith Cells Urine Mucus 05/20/19 05/20/19 05/19/19 04:51 04:51 15:00 WBC 12.4 H RBC Hgb 11.9 L Plt Count Gran % 85.9 H Lymph % (Auto) 9.5 L Gran # 10.7 H Lymph # (Auto) 1.2 L PT INR Carbon Dioxide Anion Gap BUN Creatinine Glucose Calcium Phosphorus Total Bilirubin Direct Bilirubin GGT AST ALT Alkaline Phosphatase Lactate Dehydrogenase Triglycerides Lipase 927 H Urine Occult Blood 0.2 A Urine Bilirubin 2.0 A Urine Ictotest Pos A Urine Urobilinogen 4.0 A Urine WBC 5 H Ur Squamous Epith Cells 10 H Urine Mucus Many A 05/19/19 05/19/19 05/19/19 13:26 13:15 13:15 WBC RBC Hgb Plt Count Gran % Lymph % (Auto) Gran # Lymph # (Auto) PT INR Carbon Dioxide 18 L Anion Gap 20.0 H BUN Creatinine Glucose 183 H Calcium Phosphorus Total Bilirubin 3.5 H Direct Bilirubin 2.7 H GGT AST 1189 H ALT 1721 H Alkaline Phosphatase 209 H Lactate Dehydrogenase 922 H Triglycerides 170 H Lipase 7120 H Urine Occult Blood Urine Bilirubin Urine Ictotest Urine Urobilinogen Urine WBC Ur Squamous Epith Cells Urine Mucus 05/19/19 13:15 WBC 13.7 H RBC 5.62 H Hgb 15.6 H Plt Count 479 H Gran % Lymph % (Auto) Gran # 10.3 H Lymph # (Auto) PT INR Carbon Dioxide Anion Gap BUN Creatinine Glucose Calcium Phosphorus Total Bilirubin Direct Bilirubin GGT AST ALT Alkaline Phosphatase Lactate Dehydrogenase Triglycerides Lipase Urine Occult Blood Urine Bilirubin Urine Ictotest Urine Urobilinogen Urine WBC Ur Squamous Epith Cells Urine Mucus Meds: Medications Bupropion HCl (Wellbutrin Xl) 300 mg PO DAILY [facility] Docusate Sodium (Colace) 100 mg PO BID [facility] Last Admin: 05/20/19 20:50 Dose: 100 mg Documented by: Hydromorphone HCl (Dilaudid) 0.25 - 0.75 mg IV Q2HP PRN; Protocol PRN Reason: Per Pain Protocol Last Admin: 05/21/19 07:40 Dose: 0.5 mg Documented by: Potassium Chloride 40 meq/ (Dextrose) 520 mls @ 130 mls/hr IV UD PRN PRN Reason: Potassium < 3 Magnesium Sulfate (Magnesium Sulfate) 2 gm in 50 mls @ 50 mls/hr IV UD PRN PRN Reason: Magnesium </= 1.6 Sodium Chloride (Sodium Chloride 0.9%) 1,000 mls @ 125 mls/hr IV .Q8H [facility] Last Admin: 05/21/19 04:59 Dose: 125 mls/hr Documented by: Ondansetron HCl (Zofran) 4 mg IV Q4HP PRN PRN Reason: Nausea And Vomiting Last Admin: 05/21/19 07:40 Dose: 4 mg Documented by: Polyethylene Glycol (Miralax) 17 gm PO DAILYP PRN PRN Reason: Constipation Potassium Chloride (Kdur) 40 meq PO UD PRN PRN Reason: Potssium is 3-3.5 Last Admin: 05/20/19 15:54 Dose: 40 meq Documented by: Potassium Chloride (Kdur) 40 meq PO UD PRN PRN Reason: Potassium < 3 Promethazine HCl (Phenergan) 12.5 mg IV Q6HP PRN PRN Reason: Nausea And Vomiting Last Admin: 05/20/19 10:07 Dose: 12.5 mg Documented by: Senna (Senokot) 2 tab PO HSP PRN PRN Reason: Constipation Sodium Chloride (Saline Flush) 10 ml IV Q8 [facility]IMANI Last Admin: 05/21/19 04:59 Dose: Not Given Documented by: Medical - PN: A/P - Time Spent With Patient Total time spent is greater than 50% in coordination of care (as documented) at patient's floor/unit and/or counseling patient: - Narrative A/P Narrative: A: *Acute pancreatitis: gallstone pancreatitis vs Etoh -Trigs/Calcium ok, no trauma/steroids, UDS neg -lipase 7000 on admit -Uri's score low @2 on admit -MRCP unremarkable other than cholelithiasis *Transaminitis, Hepatocellular: 2/2 above vs Viral vs -hepatitis panel negative, UDS/APAP neg -improving *Hyperbilirubinemia: 2/2 above -2.1<3.5 *Depression *etoh use: P: -IVF's decrease -clears, advance to full liquid low fat -pain control, antiemetics -Dr. Crook will hold on cholecystectomy for now, f/u outpt with HIDA scan -case discussed with GI -ppx: [facility] Medical - PN: Qual - Stroke Symptom Onset Unknown: No - VTE Deep Vein Thrombosis/Pulmonary Embolism Present on Admission: No
[2019-05-21] MEDS ORDERED: 0.9 % SODIUM CHLORIDE 1,000 ML IV SCH (08:30)
[2019-05-21] MEDS: ENOXAPARIN 40 MG/0.4 ML SYRINGE SQ SCH (08:48)
[2019-05-21] MEDS: buPROPion 150 MG TAB.XL.24H PO SCH (08:48)
[2019-05-21] MEDS: DOCUSATE SODIUM 100 MG CAPSULE PO SCH ×2 (08:48→20:41)
--- NOTE | 2019-05-21 11:31 | Discharge Summary ---
Medical - DS: Prov Patient information: Note initiated : 05/21/19 at 11:28 am Service Date, if different from initiated Date: [] Patient: Bri Mayorga a 29 y/o F admitted on 05/19/19 for Side And Back Pain. Chief Complaint: [] Date of admission: 05/19/19 22:15 Discharge date: 05/23/19 Primary care physician: Suki Hager Consults: 05/19/19 Consult to Physician [CONS] Stat Comment: Consulting Provider: Royal Jack Reason For Exam: Physician to Consult Consult to Physician [CONS] Stat Comment: Consulting Provider: Hortensia Crook Reason For Exam: Physician to Consult Medical - DS: Meds - Discharge Medications Prescriptions: Ibuprofen 600 mg PO TID PRN #18 tab PRN Reason: Pain HYDROcodone/ACETAMINOPHEN [[place] 5-325 Tablet] 1 each PO Q4H #10 tab Active and Home Medications: Home Medications buPROPion [Wellbutrin Xl] 300 mg PO DAILY 05/19/19 [History Confirmed 05/20/19 Last Taken 05/19/19 450 mg] valACYclovir [Valtrex] 500 mg PO DAILY 05/19/19 [History Confirmed 05/20/19 Last Taken 04/20/19 500 mg] Medical - DS: Hosp Hospital Course: A: *Acute pancreatitis: gallstone pancreatitis vs Etoh -Trigs/Calcium ok, no trauma/steroids, UDS neg -lipase 7000 on admit -[place]'s score low @2 on admit -MRCP unremarkable other than cholelithiasis -pain improving, tolerating full liquid diet w/o increase in symptoms *Transaminitis, Hepatocellular: 2/2 above vs Viral vs -hepatitis panel negative, UDS/APAP neg -improved *Hyperbilirubinemia: 2/2 above -resolved *Depression *etoh use: Ms. Mayorga is a 29 year old F Who presents with severe abdominal pain that has been almost constant since yesterday. She describes the pain as initiating the right upper quadrant as severe burning pinching pain which typically wax and wane until yesterday. Has started radiating over the left upper quadrant as well. States she has had similar episodes in the past 2 months sometimes weekly. The last less than an hour. Most recent one started yesterday. She did have aches and toast for lunch started about an hour after that. She did drink alcohol on Friday. She typically drinks half a bottle of wine twice a week. She started drinking alcohol about a year ago prior to that she did not drink for 6 years. She denies any new medications or drug use. She gave about a year and a half ago. Does mention that her sister had to get her gallbladder removed after she gave this well. Symptoms often happen at night. And she states maybe 1 to 2 days after drinking but unsure if they correlate. She states the pain radiates around to the back. In the ER she had CT done which showed pancreatitis and cholelithiasis, as well as elevated liver enzymes greater than 25 times upper limit of normal. Lipase is quite elevated at 7000 and bilirubin 3.5. Case is discussed with Dr. Crook, based on presentation and imaging is felt that this is related to gallstone pancreatitis. Plan for eventual cholecystectomy. I did discuss case with Dr. Samayoa attic blower was surprised on the elevation of liver enzymes and recommended Hepatitis panel and MRCP, ordered for tomorrow. Patient's vital signs are stable. She appears comfortable in bed. Patient denies needle use or exposure to hepatitis B. She did have an episode of nausea vomitus morning couple times in the ER. And some fever chills initially which is improved. 05/20 Able to get some sleep last night. Abdominal pain still present but better controlled with pain medications. Has some nausea this morning but no vomiting. All labs improving today. Awaiting MRCP today. 05/21 Patient is a little anxious overnight. Is showing some improvement. Still has the abdominal pain which is crampy and epigastric. No recent bowel movements. She is not vomiting anymore but still has occasional nausea. Occasional headache. Seen by general surgery yesterday. 05/22 Abdominal pain still present with slow improvement. Occasional headache and some occasional nausea but that is improving as well she has no emesis. No BM since prior to arrival. Feels like she is not drinking very much will add IV fluids back for today. Bowel regimen. 05/23 Still with abdominal pain she describes them as crampy right upper quadrant but also towards the middle. Overall this has greatly improved and today she felt like she only needed ibuprofen. She tolerated the oral pain medication yesterday well [place], and only use the IV Dilaudid 3 times yesterday. She wonders if she is constipated has had a bowel movement days but she has not had a lot to eat. No nausea this morning. Good BM today. Stable for discharge. Discharge diagnosis: Pancreatitis transaminitis or bilirubinemia depression alcohol use - Time Spent with Patient Total time spent providing and/or coordinating discharge services: Greater than 30 minutes Medical - DS: Exam - Constitutional Vitals: Vital Signs Temp Pulse Resp BP Pulse Ox 05/21/19 07:09 98.8 F 20 120/75 98 05/21/19 03:10 98.4 F 99 H 12 126/85 97 05/20/19 22:53 98.3 F 100 H 18 120/80 98 05/20/19 19:35 97.7 F 93 H 16 120/76 99 05/20/19 16:00 98.0 F 79 16 114/70 99 05/20/19 12:27 98.7 F 89 16 113/73 99 Intake and Output 05/20/19 05/21/19 05/21/19 21:59 05:59 13:59 Intake Total 2110 400 717 Output Total 1100 1300 700 Balance 1010 -900 17 Intake: IV 1910 477 Sodium Chloride 0.9% 1,000 ml @ 1910 477 125 mls/hr IV .Q8H [facility] Rx#: [id number] Oral 200 400 240 Output: Urine Catheter Amount 650 Void Amount 1100 650 700 Other: Meal Breakfast Percent of Meal Consumed 50% Urine Appearance Clear Clear Clear Urine Color Bright Yellow Bright Yellow Straw Weight 65.998 kg Medical - DS: Data Labs on day of discharge: Labs from last 24 hours 05/21/19 05/21/19 05/21/19 04:47 04:47 04:47 WBC RBC Hgb Hct MCV MCH MCHC RDW Plt Count MPV Gran % Lymph % (Auto) [place] % (Auto) Eos % (Auto) Baso % (Auto) Gran # Lymph # (Auto) [place] # (Auto) Eos # (Auto) Baso # (Auto) PT 14.8 H INR 1.2 H Sodium 142 Potassium 3.5 Chloride 104 Carbon Dioxide 27 Anion Gap 11.0 BUN 3 L Creatinine 0.6 GFR Calculation 121 Glucose 97 Uric Acid 3.2 Calcium 8.3 L Phosphorus 1.9 L Magnesium 1.9 Total Bilirubin 1.0 Direct Bilirubin 0.4 H GGT 440 H AST 137 H ALT 694 H Alkaline Phosphatase 174 H Lactate Dehydrogenase 208 Total Protein 6.5 Albumin 3.8 Globulin 2.7 Albumin/Globulin Ratio 1.4 Triglycerides 102 Lipase 143 H 05/21/19 04:47 WBC 11.9 H RBC 4.41 Hgb 12.2 Hct 36.7 MCV 83.2 MCH 27.7 MCHC 33.3 RDW 14.3 Plt Count 287 MPV 9.1 Gran % 81.3 H Lymph % (Auto) 11.8 L [place] % (Auto) 4.9 Eos % (Auto) 1.8 Baso % (Auto) 0.2 Gran # 9.7 H Lymph # (Auto) 1.4 L [place] # (Auto) 0.6 Eos # (Auto) 0.2 Baso # (Auto) 0 PT INR Sodium Potassium Chloride Carbon Dioxide Anion Gap BUN Creatinine GFR Calculation Glucose Uric Acid Calcium Phosphorus Magnesium Total Bilirubin Direct Bilirubin GGT AST ALT Alkaline Phosphatase Lactate Dehydrogenase Total Protein Albumin Globulin Albumin/Globulin Ratio Triglycerides Lipase Medical - DS: A/P - Patient/Caregiver Discharge Instructions Activity: increase activity as tolerated Diet: Full Liquid (Low Fat, advance as tolerated) Prescriptions: Ibuprofen 600 mg PO TID PRN #18 tab PRN Reason: Pain HYDROcodone/ACETAMINOPHEN [[place] 5-325 Tablet] 1 each PO Q4H #10 tab - Follow up Plan Follow up with: Suki Hager MD [Primary Care Provider] - Hortensia Crook MD [Physician] - Disposition: Home, Self-Care Prognosis: Fair Rehab Potential: Fair Overall status at discharge: patient is progressing back to baseline Medical - DS: Qual - VTE Deep Vein Thrombosis/Pulmonary Embolism Present on Admission: No
--- NOTE | 2019-05-21 19:25 | General Surgery Progress Note ---
Subjective Patient reports: feels better, pain is less, afebrile Narrative: Note initiated : 05/21/19 at 7:22 pm Service Date, if different from initiated Date: [] Patient: Bri Mayorga 29 y/o F admitted on 05/19/19 for Side And Back Pain. Chief Complaint: [patient states that she is significantly improved. She has much less pain. She has some back pain but her upper abdominal pain is significantly improved. Her white blood count is 11.9, and globin 12.2, hematocrit 36.7, phosphorus 1.9. Her liver panels continued to improve. Her lipase is nearly normal.] Objective Temp Pulse Resp BP Pulse Ox 98.1 F 99 H 16 119/74 98 05/21/19 16:00 05/21/19 03:10 05/21/19 16:00 05/21/19 16:00 05/21/19 16:00 - Additional Data Intake & Output - Last 24 hours: Intake & Output 05/19/19 05/20/19 05/21/19 05/22/19 05:59 05:59 05:59 05:59 Intake Total 3060 3985 1854.5455 Output Total 4150 1300 Balance 3060 -735 930.0994 Weight 151 lb 145 lb 8 oz - General physical appearance well developed, well nourished, no distress - Eyes PERRL, normal ocular movement - ENT normal pinna, normal nares, normal mucosa, no hearing loss, no congestion - Neck no masses, no bruits, trachea midline, no lymphadenopathy, no venous distension - Respiratory normal expansion, normal respiratory effort, clear to auscultation - Cardiovascular Cardiovascular exam: Present: normal rate and rhythm, RRR, +S1, +S2. Absent: JVD, tachycardia - Abdomen tender (mild to moderate epigastric and right upper quadrant tenderness; good active bowel sounds; tenderness right CVA region and right lateral flank) - Integumentary no rash, no growths, no abnormal pigmentation - Neurologic normal coordination, normal sensation - Musculoskeletal normal gait, normal posture - Psychiatric oriented to time, oriented to person, oriented to place, speech is normal, memory intact - Labs 05/21/19 04:47 05/21/19 04:47 Diabetes panel 05/21/19 Range/Units 04:47 Sodium 142 (133-145) mmol/L Potassium 3.5 (3.3-5.1) mmol/L Chloride 104 (96-108) mmol/L Carbon Dioxide 27 (22-30) mmol/L BUN 3 L (6-20) mg/dl Creatinine 0.6 (0.6-1.1) mg/dl Glucose 97 (70-105) mg/dL Calcium 8.3 L (8.6-10.4) mg/dl AST 137 H (0-37) U/l ALT 694 H (0-40) U/l Alkaline Phosphatase 174 H (39-117) U/L Total Protein 6.5 (5.9-8.4) gm/dL Albumin 3.8 (3.2-5.2) gm/dL Triglycerides 102 (<150) mg/dl Calcium panel 05/21/19 Range/Units 04:47 Calcium 8.3 L (8.6-10.4) mg/dl Phosphorus 1.9 L (2.7-4.5) mg/dL Albumin 3.8 (3.2-5.2) gm/dL Pituitary panel 05/21/19 Range/Units 04:47 Sodium 142 (133-145) mmol/L Potassium 3.5 (3.3-5.1) mmol/L Chloride 104 (96-108) mmol/L Carbon Dioxide 27 (22-30) mmol/L BUN 3 L (6-20) mg/dl Creatinine 0.6 (0.6-1.1) mg/dl Glucose 97 (70-105) mg/dL Calcium 8.3 L (8.6-10.4) mg/dl Adrenal panel 05/21/19 Range/Units 04:47 Sodium 142 (133-145) mmol/L Potassium 3.5 (3.3-5.1) mmol/L Chloride 104 (96-108) mmol/L Carbon Dioxide 27 (22-30) mmol/L BUN 3 L (6-20) mg/dl Creatinine 0.6 (0.6-1.1) mg/dl Glucose 97 (70-105) mg/dL Calcium 8.3 L (8.6-10.4) mg/dl Total Bilirubin 1.0 (0.0-1.0) mg/dL AST 137 H (0-37) U/l ALT 694 H (0-40) U/l Alkaline Phosphatase 174 H (39-117) U/L Total Protein 6.5 (5.9-8.4) gm/dL Albumin 3.8 (3.2-5.2) gm/dL Assessment and Plan (1) Acute hepatitis Status: Acute Assessment and plan: Patient shows continued improvement. Current Visit: Yes (2) Acute pancreatitis Status: Acute Assessment and plan: Significant improvement over the past 24 hours Current Visit: Yes (3) Cholelithiasis Status: Acute Current Visit: Yes - Time Spent With Patient Total time spent is greater than 50% in coordination of care (as documented) at patient's floor/unit and/or counseling patient:
[2019-05-21] MEDS ORDERED: CYCLOBENZAPRINE 10 MG TABLET PO PRN (19:26)
[2019-05-22] MEDS: HYDROmorphone 2 MG/ML VIAL IV PRN ×3 (02:34→07:01)
[2019-05-22] MEDS: 0.9 % SODIUM CHLORIDE 10 ML SYRINGE IV SCH ×3 (04:27→21:34)
[2019-05-22 06:27] LABS: Basophils # (Auto) 0.1 K/mcL (0.0-0.3); Basophils % (Auto) 0.4 % (0.0-2.0); Eosinophils # (Auto) 0.2 K/mcL (0.0-0.7); Eosinophils % (Auto) 1.3 % (0.0-7.0); Granulocytes % (Auto) 83.5 % (38.0-78.0); Hematocrit 38.6 % (36.0-48.0); Lymphocytes # (Auto) 1.4 K/mcL (1.5-4.8); Lymphocytes % (Auto) 10.1 % (15.5-49.0); Mean Cell Volume 81.7 fL (80.0-100.0); Mean Corpuscular HGB Conc 33.7 g/dL (31.0-36.0); Mean Platelet Volume 9.5 fL (7.4-10.4); Monocytes # (Auto) 0.6 K/mcL (0.1-0.9); Monocytes % (Auto) 4.7 % (1.0-12.0); Platelet Count 318 K/mcL (140-440); RBC 4.72 M/mcL (4.00-5.20); Red Cell Distribution Width 13.7 % (11.5-14.5); WBC 13.6 K/mcL (4.5-11.0)
[2019-05-22 06:39] LABS: ALT/SGPT 503 U/l (0-40); AST/SGOT 56 U/l (0-37); Albumin 4.1 gm/dL (3.2-5.2); Albumin/Globulin Ratio 1.2 (1.0-2.3); Alkaline Phosphatase 181 U/L (39-117); Bilirubin,Direct 0.3 mg/dL (0.0-0.3); Bilirubin,Total 0.9 mg/dL (0.0-1.0); Blood Urea Nitrogen 5 mg/dl (6-20); Calcium 9.2 mg/dl (8.6-10.4); Carbon Dioxide 26 mmol/L (22-30); Chloride 97 mmol/L (96-108); Globulin 3.5 gm/dL (2.2-3.7); Glomerular Filtration Rate 121; Glucose 102 mg/dL (70-105); Lactate Dehydrogenase 179 U/L (94-250); Phosphorous 2.8 mg/dL (2.7-4.5); Triglycerides 103 mg/dl (<150); Uric Acid 3.7 mg/dL (2.5-8.0)
--- NOTE | 2019-05-22 08:13 | Internal Med Progress Note ---
Medical - PN: Subj Patient information: Note initiated : 05/22/19 at 8:11 am Service Date, if different from initiated Date: [] Patient: Bri Mayorga a 29 y/o F admitted on 05/19/19 for Side And Back Pain. Chief Complaint: [] Interval history: Ms. Mayorga is a 29 year old F Who presents with severe abdominal pain that has been almost constant since yesterday. She describes the pain as initiating the right upper quadrant as severe burning pinching pain which typically wax and wane until yesterday. Has started radiating over the left upper quadrant as well. States she has had similar episodes in the past 2 months sometimes weekly. The last less than an hour. Most recent one started yesterday. She did have aches and toast for lunch started about an hour after that. She did drink alcohol on Friday. She typically drinks half a bottle of wine twice a week. She started drinking alcohol about a year ago prior to that she did not drink for 6 years. She denies any new medications or drug use. She gave about a year and a half ago. Does mention that her sister had to get her gallbladder removed after she gave this well. Symptoms often happen at night. And she states maybe 1 to 2 days after drinking but unsure if they correlate. She states the pain radiates around to the back. In the ER she had CT done which showed pancreatitis and cholelithiasis, as well as elevated liver enzymes greater than 25 times upper limit of normal. Lipase is quite elevated at 7000 and bilirubin 3.5. Case is discussed with Dr. Crook, based on presentation and imaging is felt that this is related to gallstone pancreatitis. Plan for eventual cholecystectomy. I did discuss case with Dr. Samayoa plant clerk was surprised on the elevation of liver enzymes and recommended Hepatitis panel and MRCP, ordered for tomorrow. Patient's vital signs are stable. She appears comfortable in bed. Patient denies needle use or exposure to hepatitis B. She did have an episode of nausea vomitus morning couple times in the ER. And some fever chills initially which is improved. 05/20 Able to get some sleep last night. Abdominal pain still present but better controlled with pain medications. Has some nausea this morning but no vomiting. All labs improving today. Awaiting MRCP today. 05/21 Patient is a little anxious overnight. Is showing some improvement. Still has the abdominal pain which is crampy and epigastric. No recent bowel movements. She is not vomiting anymore but still has occasional nausea. Occasional headache. Seen by general surgery yesterday. 05/22 Abdominal pain still present with slow improvement. Occasional headache and some occasional nausea but that is improving as well she has no emesis. No BM since prior to arrival. Feels like she is not drinking very much will add IV fluids back for today. Bowel regimen. Review of Systems: denies fever/chills/vomiting/chest pain/cough/dyspnea/diarrhea. Otherwise see above. - Constitutional Vitals: Vital Signs Temp Pulse Resp BP Pulse Ox 99.4 F H 85 18 116/75 97 05/22/19 04:00 05/22/19 04:00 05/22/19 07:27 05/22/19 04:00 05/22/19 04:00 Period Temp Pulse Resp BP Sys/Martinez Pulse Ox Last 24 Hr 98.1 F-99.4 F 85-91 16-20 116-120/74-78 92-98 Intake and Output 05/21/19 05/22/19 05/22/19 21:59 05:59 13:59 Intake Total 883 600 Output Total 250 200 Balance 633 400 Weight 65.771 kg Intake & Output: Intake & Output 05/21/19 05/22/19 05/22/19 21:59 05:59 13:59 Intake Total 883 600 Output Total 250 200 Balance 633 400 Weight 65.771 kg Intake: IV 523 Sodium Chloride 0.9% 1,000 ml @ 523 125 mls/hr IV .Q8H [facility] Rx#: [id number] Oral 360 600 Output: Void Amount 250 200 Other: Urine Appearance Clear Urine Color Dark Yellow Exam: General: Alert, Awake, No acute Distress Eyes/N/T: EOMI, , Head/Neck: neck supple, CV: RRR, No murmurs, Pulm: Clear b/l, no wheezing/rhonchi/rales Abd: soft, TTP epigastrium but not as tender, +BS Ext: no clubbing/cyanosis, nonpitting trace edema LE's Neuro: Alert, no focal deficits, moves all extremities, Skin: warm/dry Medical - PN: Obj Da - Labs CBC & Chem 7: 05/22/19 04:50 05/22/19 04:50 Labs: Abnormal Lab Results 05/22/19 05/22/19 05/21/19 04:50 04:50 04:47 WBC 13.6 H RBC Hgb Plt Count Gran % 83.5 H Lymph % (Auto) 10.1 L Gran # 11.3 H Lymph # (Auto) 1.4 L PT INR Potassium 3.2 L Carbon Dioxide Anion Gap BUN 5 L 3 L Creatinine Glucose Calcium 8.3 L Phosphorus 1.9 L Total Bilirubin Direct Bilirubin 0.4 H GGT 408 H 440 H AST 56 H 137 H ALT 503 H 694 H Alkaline Phosphatase 181 H 174 H Lactate Dehydrogenase Triglycerides Lipase Urine Occult Blood Urine Bilirubin Urine Ictotest Urine Urobilinogen Urine WBC Ur Squamous Epith Cells Urine Mucus 05/21/19 05/21/19 05/21/19 04:47 04:47 04:47 WBC 11.9 H RBC Hgb Plt Count Gran % 81.3 H Lymph % (Auto) 11.8 L Gran # 9.7 H Lymph # (Auto) 1.4 L PT 14.8 H INR 1.2 H Potassium Carbon Dioxide Anion Gap BUN Creatinine Glucose Calcium Phosphorus Total Bilirubin Direct Bilirubin GGT AST ALT Alkaline Phosphatase Lactate Dehydrogenase Triglycerides Lipase 143 H Urine Occult Blood Urine Bilirubin Urine Ictotest Urine Urobilinogen Urine WBC Ur Squamous Epith Cells Urine Mucus 05/20/19 05/20/19 05/20/19 04:51 04:51 04:51 WBC 12.4 H RBC Hgb 11.9 L Plt Count Gran % 85.9 H Lymph % (Auto) 9.5 L Gran # 10.7 H Lymph # (Auto) 1.2 L PT 15.3 H INR 1.2 H Potassium Carbon Dioxide 21 L Anion Gap BUN Creatinine 0.5 L Glucose Calcium 7.5 L Phosphorus Total Bilirubin 2.1 H Direct Bilirubin 1.5 H GGT 520 H AST 412 H ALT 1077 H Alkaline Phosphatase 176 H Lactate Dehydrogenase 384 H Triglycerides Lipase Urine Occult Blood Urine Bilirubin Urine Ictotest Urine Urobilinogen Urine WBC Ur Squamous Epith Cells Urine Mucus 05/20/19 05/19/19 05/19/19 04:51 15:00 13:26 WBC RBC Hgb Plt Count Gran % Lymph % (Auto) Gran # Lymph # (Auto) PT INR Potassium Carbon Dioxide Anion Gap BUN Creatinine Glucose Calcium Phosphorus Total Bilirubin Direct Bilirubin GGT AST ALT Alkaline Phosphatase Lactate Dehydrogenase 922 H Triglycerides 170 H Lipase 927 H Urine Occult Blood 0.2 A Urine Bilirubin 2.0 A Urine Ictotest Pos A Urine Urobilinogen 4.0 A Urine WBC 5 H Ur Squamous Epith Cells 10 H Urine Mucus Many A 05/19/19 05/19/19 05/19/19 13:15 13:15 13:15 WBC 13.7 H RBC 5.62 H Hgb 15.6 H Plt Count 479 H Gran % Lymph % (Auto) Gran # 10.3 H Lymph # (Auto) PT INR Potassium Carbon Dioxide 18 L Anion Gap 20.0 H BUN Creatinine Glucose 183 H Calcium Phosphorus Total Bilirubin 3.5 H Direct Bilirubin 2.7 H GGT AST 1189 H ALT 1721 H Alkaline Phosphatase 209 H Lactate Dehydrogenase Triglycerides Lipase 7120 H Urine Occult Blood Urine Bilirubin Urine Ictotest Urine Urobilinogen Urine WBC Ur Squamous Epith Cells Urine Mucus Meds: Medications Bupropion HCl (Wellbutrin Xl) 300 mg PO DAILY [facility] Last Admin: 05/21/19 08:48 Dose: 300 mg Documented by: Cyclobenzaprine HCl (Flexeril) 10 mg PO TIDP PRN PRN Reason: Muscle Spasm Last Admin: 05/21/19 19:36 Dose: 10 mg Documented by: Docusate Sodium (Colace) 100 mg PO BID [facility] Last Admin: 05/21/19 20:41 Dose: 100 mg Documented by: Enoxaparin Sodium (Lovenox) 40 mg SQ DAILY [facility] Last Admin: 05/21/19 08:48 Dose: 40 mg Documented by: Hydromorphone HCl (Dilaudid) 0.25 - 0.75 mg IV Q2HP PRN; Protocol PRN Reason: Per Pain Protocol Last Admin: 05/22/19 07:01 Dose: 0.5 mg Documented by: Potassium Chloride 40 meq/ (Dextrose) 520 mls @ 130 mls/hr IV UD PRN PRN Reason: Potassium < 3 Magnesium Sulfate (Magnesium Sulfate) 2 gm in 50 mls @ 50 mls/hr IV UD PRN PRN Reason: Magnesium </= 1.6 Ondansetron HCl (Zofran) 4 mg IV Q4HP PRN PRN Reason: Nausea And Vomiting Last Admin: 05/21/19 14:47 Dose: 4 mg Documented by: Polyethylene Glycol (Miralax) 17 gm PO DAILYP PRN PRN Reason: Constipation Potassium Chloride (Kdur) 40 meq PO UD PRN PRN Reason: Potssium is 3-3.5 Last Admin: 05/20/19 15:54 Dose: 40 meq Documented by: Potassium Chloride (Kdur) 40 meq PO UD PRN PRN Reason: Potassium < 3 Promethazine HCl (Phenergan) 12.5 mg IV Q6HP PRN PRN Reason: Nausea And Vomiting Last Admin: 05/20/19 10:07 Dose: 12.5 mg Documented by: Senna (Senokot) 2 tab PO HSP PRN PRN Reason: Constipation Sodium Chloride (Saline Flush) 10 ml IV Q8 [facility] Last Admin: 05/22/19 04:27 Dose: 10 ml Documented by: Medical - PN: A/P - Time Spent With Patient Total time spent is greater than 50% in coordination of care (as documented) at patient's floor/unit and/or counseling patient: - Narrative A/P Narrative: A: *Acute pancreatitis: gallstone pancreatitis vs Etoh -Trigs/Calcium ok, no trauma/steroids, UDS neg -lipase 7000 on admit -[place]'s score low @2 on admit -MRCP unremarkable other than cholelithiasis -pain slowly improving *Transaminitis, Hepatocellular: 2/2 above vs Viral vs -hepatitis panel negative, UDS/APAP neg -improving *Hyperbilirubinemia: 2/2 above -resolved *Depression *etoh use: P: -on full liquid low fat, advance as tolerated -IVF today given poor oral intake -pain control transition to oral meds, antiemetics -Dr. Crook will hold on cholecystectomy for now, f/u outpt with HIDA scan -bowel regimen -case discussed with GI -ppx: [facility] Medical - PN: Qual - Stroke Symptom Onset Unknown: No - VTE Deep Vein Thrombosis/Pulmonary Embolism Present on Admission: No
[2019-05-22] MEDS: HYDROcodone/APAP 5/325MG TABLET PO PRN ×4 (08:28→21:34)
[2019-05-22] MEDS: ENOXAPARIN 40 MG/0.4 ML SYRINGE SQ SCH (08:29)
[2019-05-22] MEDS: DOCUSATE SODIUM 100 MG CAPSULE PO SCH ×3 (08:29→21:38)
[2019-05-22] MEDS: buPROPion 150 MG TAB.XL.24H PO SCH (08:29)
[2019-05-22] MEDS: POTASSIUM CHLORIDE 20 MEQ TABLET PO PRN (08:43)
[2019-05-22] MEDS ORDERED: POLYETHYLENE GLYCOL 3350 17 GM PACKET PO ONE (08:49)
[2019-05-22] MEDS ORDERED: SENNOSIDES/DOCUSATE SODIUM 1 TAB TABLET PO ONE (08:50)
[2019-05-22] MEDS ORDERED: POTASSIUM PHOSPHATE 20 MEQ in DEXTROSE 5% IN WATER 250 ML IV ONE (08:54)
[2019-05-22] MEDS ORDERED: 0.9 % SODIUM CHLORIDE 1,000 ML IV SCH (09:00)
--- NOTE | 2019-05-22 12:39 | General Surgery Progress Note ---
Subjective Patient reports: feels better, pain is less, tolerating a regular diet, afebrile Narrative: Note initiated : 05/22/19 at 12:39 pm Service Date, if different from initiated Date: [] Patient: Bri Mayorga 29 y/o F admitted on 05/19/19 for Side And Back Pain. Chief Complaint: [patient continues to improve. Her pain is much less. She is tolerating diet without difficulty. White blood count 13.6, hemoglobin 13, hematocrit 38.6, potassium 3.2, LFTs continued to decrease.] Objective Temp Pulse Resp BP Pulse Ox 97.0 F 100 H 16 124/76 98 05/22/19 08:00 05/22/19 08:00 05/22/19 08:00 05/22/19 08:00 05/22/19 08:00 - Additional Data Intake & Output - Last 24 hours: Intake & Output 05/20/19 05/21/19 05/22/19 05/23/19 05:59 05:59 05:59 05:59 Intake Total 3060 3985 2454.5455 Output Total 4150 1750 Balance 3060 -128 149.4075 Weight 151 lb 145 lb 8 oz 145 lb - General physical appearance well developed, well nourished, no distress - Eyes PERRL, normal ocular movement - ENT normal pinna, normal nares, normal mucosa, no hearing loss, no congestion - Neck no masses, no bruits, trachea midline, no lymphadenopathy, no venous distension - Respiratory normal expansion, normal respiratory effort, clear to auscultation - Cardiovascular Cardiovascular exam: Present: normal rate and rhythm, RRR, +S1, +S2. Absent: JVD, tachycardia - Abdomen tender (mild epigastric tenderness otherwise benign abdominal exam), bowel sounds (present), surgical scars (none), masses (none) - Rectum normal sphincter tone, no hemorrhoids, no tenderness, no masses, no bleeding - Integumentary no rash, no growths, no abnormal pigmentation - Neurologic normal coordination, normal sensation - Musculoskeletal normal gait, normal posture - Psychiatric oriented to time, oriented to person, oriented to place, speech is normal, memory intact - Labs 05/22/19 04:50 05/22/19 04:50 Diabetes panel 05/22/19 Range/Units 04:50 Sodium 137 (133-145) mmol/L Potassium 3.2 L (3.3-5.1) mmol/L Chloride 97 (96-108) mmol/L Carbon Dioxide 26 (22-30) mmol/L BUN 5 L (6-20) mg/dl Creatinine 0.6 (0.6-1.1) mg/dl Glucose 102 (70-105) mg/dL Calcium 9.2 (8.6-10.4) mg/dl AST 56 H (0-37) U/l ALT 503 H (0-40) U/l Alkaline Phosphatase 181 H (39-117) U/L Total Protein 7.6 (5.9-8.4) gm/dL Albumin 4.1 (3.2-5.2) gm/dL Triglycerides 103 (<150) mg/dl Calcium panel 05/22/19 Range/Units 04:50 Calcium 9.2 (8.6-10.4) mg/dl Phosphorus 2.8 (2.7-4.5) mg/dL Albumin 4.1 (3.2-5.2) gm/dL Pituitary panel 05/22/19 Range/Units 04:50 Sodium 137 (133-145) mmol/L Potassium 3.2 L (3.3-5.1) mmol/L Chloride 97 (96-108) mmol/L Carbon Dioxide 26 (22-30) mmol/L BUN 5 L (6-20) mg/dl Creatinine 0.6 (0.6-1.1) mg/dl Glucose 102 (70-105) mg/dL Calcium 9.2 (8.6-10.4) mg/dl Adrenal panel 05/22/19 Range/Units 04:50 Sodium 137 (133-145) mmol/L Potassium 3.2 L (3.3-5.1) mmol/L Chloride 97 (96-108) mmol/L Carbon Dioxide 26 (22-30) mmol/L BUN 5 L (6-20) mg/dl Creatinine 0.6 (0.6-1.1) mg/dl Glucose 102 (70-105) mg/dL Calcium 9.2 (8.6-10.4) mg/dl Total Bilirubin 0.9 (0.0-1.0) mg/dL AST 56 H (0-37) U/l ALT 503 H (0-40) U/l Alkaline Phosphatase 181 H (39-117) U/L Total Protein 7.6 (5.9-8.4) gm/dL Albumin 4.1 (3.2-5.2) gm/dL Assessment and Plan (1) Acute hepatitis Status: Acute Assessment and plan: Patient shows continued improvement. Current Visit: Yes (2) Acute pancreatitis Status: Acute Assessment and plan: Significant improvement over the past 24 hours Current Visit: Yes (3) Cholelithiasis Status: Acute Current Visit: Yes - Time Spent With Patient Total time spent is greater than 50% in coordination of care (as documented) at patient's floor/unit and/or counseling patient:
[2019-05-22] MEDS ORDERED: MAGNESIUM HYDROXIDE 30 ML ORAL.SUSP PO ONE (17:07)
[2019-05-22] MEDS ORDERED: MAGNESIUM HYDROXIDE 30 ML ORAL.SUSP ONE (17:33)
[2019-05-23] MEDS: ONDANSETRON 4 MG/2 ML VIAL IV PRN (00:51)
[2019-05-23] MEDS: HYDROcodone/APAP 5/325MG TABLET PO PRN ×2 (03:27→08:09)
[2019-05-23] MEDS: 0.9 % SODIUM CHLORIDE 10 ML SYRINGE IV SCH ×2 (04:24→13:20)
[2019-05-23 06:21] LABS: Basophils # (Auto) 0.1 K/mcL (0.0-0.3); Basophils % (Auto) 0.6 % (0.0-2.0); Eosinophils # (Auto) 0.1 K/mcL (0.0-0.7); Eosinophils % (Auto) 1.1 % (0.0-7.0); Granulocytes % (Auto) 83.9 % (38.0-78.0); Hematocrit 38.9 % (36.0-48.0); Hemoglobin 13.5 g/dL (12.0-15.0); Lymphocytes # (Auto) 1.2 K/mcL (1.5-4.8); Lymphocytes % (Auto) 9.8 % (15.5-49.0); Mean Cell Volume 81.4 fL (80.0-100.0); Mean Corpuscular HGB Conc 34.6 g/dL (31.0-36.0); Mean Platelet Volume 9.2 fL (7.4-10.4); Monocytes # (Auto) 0.6 K/mcL (0.1-0.9); Monocytes % (Auto) 4.6 % (1.0-12.0); Platelet Count 353 K/mcL (140-440); RBC 4.78 M/mcL (4.00-5.20); Red Cell Distribution Width 13.5 % (11.5-14.5); WBC 12.7 K/mcL (4.5-11.0)
[2019-05-23 06:26] LABS: INR 1.1 (0.9-1.1); Prothrombin Time 14.4 sec (11.9-14.5)
[2019-05-23 06:41] LABS: ALT/SGPT 350 U/l (0-40); AST/SGOT 35 U/l (0-37); Albumin 4.2 gm/dL (3.2-5.2); Albumin/Globulin Ratio 1.1 (1.0-2.3); Alkaline Phosphatase 200 U/L (39-117); Bilirubin,Direct 0.3 mg/dL (0.0-0.3); Bilirubin,Total 0.8 mg/dL (0.0-1.0); Blood Urea Nitrogen 4 mg/dl (6-20); Calcium 9.6 mg/dl (8.6-10.4); Carbon Dioxide 25 mmol/L (22-30); Chloride 99 mmol/L (96-108); Globulin 3.8 gm/dL (2.2-3.7); Glomerular Filtration Rate 121; Glucose 123 mg/dL (70-105); Lactate Dehydrogenase 193 U/L (94-250); Phosphorous 2.9 mg/dL (2.7-4.5); Triglycerides 95 mg/dl (<150); Uric Acid 3.3 mg/dL (2.5-8.0)
[2019-05-23] MEDS: buPROPion 150 MG TAB.XL.24H PO SCH (08:08)
[2019-05-23] MEDS: DOCUSATE SODIUM 100 MG CAPSULE PO SCH (08:08)
[2019-05-23] MEDS: ENOXAPARIN 40 MG/0.4 ML SYRINGE SQ SCH (08:09)
--- NOTE | 2019-05-23 08:11 | Internal Med Progress Note ---
Medical - PN: Subj Patient information: Note initiated : 05/23/19 at 8:07 am Service Date, if different from initiated Date: [] Patient: Bri Mayorga a 29 y/o F admitted on 05/19/19 for Side And Back Pain. Chief Complaint: [] Interval history: Ms. Mayorga is a 29 year old F Who presents with severe abdominal pain that has been almost constant since yesterday. She describes the pain as initiating the right upper quadrant as severe burning pinching pain which typically wax and wane until yesterday. Has started radiating over the left upper quadrant as well. States she has had similar episodes in the past 2 months sometimes weekly. The last less than an hour. Most recent one started yesterday. She did have aches and toast for lunch started about an hour after that. She did drink alcohol on Friday. She typically drinks half a bottle of wine twice a week. She started drinking alcohol about a year ago prior to that she did not drink for 6 years. She denies any new medications or drug use. She gave about a year and a half ago. Does mention that her sister had to get her gallbladder removed after she gave this well. Symptoms often happen at night. And she states maybe 1 to 2 days after drinking but unsure if they correlate. She states the pain radiates around to the back. In the ER she had CT done which showed pancreatitis and cholelithiasis, as well as elevated liver enzymes greater than 25 times upper limit of normal. Lipase is quite elevated at 7000 and bilirubin 3.5. Case is discussed with Dr. Crook, based on presentation and imaging is felt that this is related to gallstone pancreatitis. Plan for eventual cholecystectomy. I did discuss case with Dr. Samayoa node js developer was surprised on the elevation of liver enzymes and recommended Hepatitis panel and MRCP, ordered for tomorrow. Patient's vital signs are stable. She appears comfortable in bed. Patient denies needle use or exposure to hepatitis B. She did have an episode of nausea vomitus morning couple times in the ER. And some fever chills initially which is improved. 05/20 Able to get some sleep last night. Abdominal pain still present but better controlled with pain medications. Has some nausea this morning but no vomiting. All labs improving today. Awaiting MRCP today. 05/21 Patient is a little anxious overnight. Is showing some improvement. Still has the abdominal pain which is crampy and epigastric. No recent bowel movements. She is not vomiting anymore but still has occasional nausea. Occasional headache. Seen by general surgery yesterday. 05/22 Abdominal pain still present with slow improvement. Occasional headache and some occasional nausea but that is improving as well she has no emesis. No BM since prior to arrival. Feels like she is not drinking very much will add IV fluids back for today. Bowel regimen. 05/23 Still with abdominal pain she describes them as crampy right upper quadrant but also towards the middle. Overall this has greatly improved and today she felt like she only needed ibuprofen. She tolerated the oral pain medication yest erday well [place], and only use the IV Dilaudid 3 times yesterday. She wonders if she is constipated has had a bowel movement days but she has not had a lot to eat. No nausea this morning. Possible discharged today after abdominal x-ray. Review of Systems: denies fever/chills/vomiting/chest pain/cough/dyspnea/diarrhea. Otherwise see above. - Constitutional Vitals: Vital Signs Temp Pulse Resp BP Pulse Ox 97.9 F 89 20 113/74 98 05/23/19 07:02 05/23/19 04:00 05/23/19 07:02 05/23/19 07:02 05/23/19 07:02 Period Temp Pulse Resp BP Sys/Martinez Pulse Ox Last 24 Hr 97.3 F-98.3 F 87-97 16-20 113-125/74-85 98-99 Intake and Output 05/22/19 05/23/19 05/23/19 21:59 05:59 13:59 Intake Total 1500 720 Output Total 850 Balance 650 720 Weight 65.771 kg Intake & Output: Intake & Output 05/22/19 05/23/19 05/23/19 21:59 05:59 13:59 Intake Total 1500 720 Output Total 850 Balance 650 720 Weight 65.771 kg Intake: IV 1000 Sodium Chloride 0.9% 1,000 ml @ 1000 125 mls/hr IV .Q8H [facility] Rx#: [id number] Oral 500 720 Output: Void Amount 850 Other: Meal Dinner Percent of Meal Consumed 50% Feeding Ability Independent Urine Color Straw Urine Odor Normal # Voids 1 Exam: General: Alert, Awake, No acute Distress Eyes/N/T: EOMI, , Head/Neck: neck supple, CV: RRR, No murmurs, Pulm: Clear b/l, no wheezing/rhonchi/rales Abd: soft, minimal TTP epigastrium/RUQ, +BS Ext: no clubbing/cyanosis, nonpitting trace edema LE's Neuro: Alert, no focal deficits, moves all extremities, Skin: warm/dry Medical - PN: Obj Da - Labs CBC & Chem 7: 05/23/19 05:08 05/23/19 05:08 Labs: Abnormal Lab Results 05/23/19 05/23/19 05/22/19 05:08 05:08 04:50 WBC 12.7 H Gran % 83.9 H Lymph % (Auto) 9.8 L Gran # 10.7 H Lymph # (Auto) 1.2 L PT INR Potassium 3.2 L BUN 4 L 5 L Glucose 123 H Calcium Phosphorus Direct Bilirubin GGT 376 H 408 H AST 56 H ALT 350 H 503 H Alkaline Phosphatase 200 H 181 H Globulin 3.8 H Lipase Urine Occult Blood Urine Bilirubin Urine Ictotest Urine Urobilinogen Urine WBC Ur Squamous Epith Cells Urine Mucus 05/22/19 05/21/19 05/21/19 04:50 04:47 04:47 WBC 13.6 H Gran % 83.5 H Lymph % (Auto) 10.1 L Gran # 11.3 H Lymph # (Auto) 1.4 L PT INR Potassium BUN 3 L Glucose Calcium 8.3 L Phosphorus 1.9 L Direct Bilirubin 0.4 H GGT 440 H AST 137 H ALT 694 H Alkaline Phosphatase 174 H Globulin Lipase 143 H Urine Occult Blood Urine Bilirubin Urine Ictotest Urine Urobilinogen Urine WBC Ur Squamous Epith Cells Urine Mucus 05/21/19 05/21/19 05/19/19 04:47 04:47 15:00 WBC 11.9 H Gran % 81.3 H Lymph % (Auto) 11.8 L Gran # 9.7 H Lymph # (Auto) 1.4 L PT 14.8 H INR 1.2 H Potassium BUN Glucose Calcium Phosphorus Direct Bilirubin GGT AST ALT Alkaline Phosphatase Globulin Lipase Urine Occult Blood 0.2 A Urine Bilirubin 2.0 A Urine Ictotest Pos A Urine Urobilinogen 4.0 A Urine WBC 5 H Ur Squamous Epith Cells 10 H Urine Mucus Many A Meds: Medications Hydrocodone Bitart/Acetaminophen ([place] 5/325mg) 1 tab PO Q4-6HP PRN; Protocol PRN Reason: Per Pain Protocol Last Admin: 05/23/19 03:27 Dose: 1 tab Documented by: Bupropion HCl (Wellbutrin Xl) 300 mg PO DAILY [facility] Last Admin: 05/22/19 08:29 Dose: 300 mg Documented by: Cyclobenzaprine HCl (Flexeril) 10 mg PO TIDP PRN PRN Reason: Muscle Spasm Last Admin: 05/21/19 19:36 Dose: 10 mg Documented by: Docusate Sodium (Colace) 100 mg PO BID [facility] Last Admin: 05/22/19 21:38 Dose: 100 mg Documented by: Enoxaparin Sodium (Lovenox) 40 mg SQ DAILY [facility] Last Admin: 05/22/19 08:29 Dose: 40 mg Documented by: Hydromorphone HCl (Dilaudid) 0.25 - 0.75 mg IV Q2HP PRN; Protocol PRN Reason: Per Pain Protocol Last Admin: 05/22/19 07:01 Dose: 0.5 mg Documented by: Potassium Chloride 40 meq/ (Dextrose) 520 mls @ 130 mls/hr IV UD PRN PRN Reason: Potassium < 3 Magnesium Sulfate (Magnesium Sulfate) 2 gm in 50 mls @ 50 mls/hr IV UD PRN PRN Reason: Magnesium </= 1.6 Ondansetron HCl (Zofran) 4 mg IV Q4HP PRN PRN Reason: Nausea And Vomiting Last Admin: 05/23/19 00:51 Dose: 4 mg Documented by: Polyethylene Glycol (Miralax) 17 gm PO DAILYP PRN PRN Reason: Constipation Potassium Chloride (Kdur) 40 meq PO UD PRN PRN Reason: Potssium is 3-3.5 Last Admin: 05/22/19 08:43 Dose: 40 meq Documented by: Potassium Chloride (Kdur) 40 meq PO UD PRN PRN Reason: Potassium < 3 Promethazine HCl (Phenergan) 12.5 mg IV Q6HP PRN PRN Reason: Nausea And Vomiting Last Admin: 05/20/19 10:07 Dose: 12.5 mg Documented by: Senna (Senokot) 2 tab PO HSP PRN PRN Reason: Constipation Last Admin: 05/22/19 09:08 Dose: 2 tab Documented by: Sodium Chloride (Saline Flush) 10 ml IV Q8 [facility] Last Admin: 05/23/19 04:24 Dose: 10 ml Documented by: Medical - PN: A/P - Time Spent With Patient Total time spent is greater than 50% in coordination of care (as documented) at patient's floor/unit and/or counseling patient: - Narrative A/P Narrative: A: *Acute pancreatitis: gallstone pancreatitis vs Etoh -Trigs/Calcium ok, no trauma/steroids, UDS neg -lipase 7000 on admit -Uri's score low @2 on admit -MRCP unremarkable other than cholelithiasis -pain improving, tolerating full liquid diet w/o increase in symptoms *Transaminitis, Hepatocellular: 2/2 above vs Viral vs -hepatitis panel negative, UDS/APAP neg -improved *Hyperbilirubinemia: 2/2 above -resolved *Depression *etoh use: P: -on full liquid low fat, advance as tolerated -axr -pain control transition to oral meds, antiemetics -Dr. Crook will hold on cholecystectomy for now, f/u outpt with HIDA scan -bowel regimen -case discussed with GI -ppx: [facility] Medical - PN: Qual - Stroke Symptom Onset Unknown: No - VTE Deep Vein Thrombosis/Pulmonary Embolism Present on Admission: No
[2019-05-23] MEDS ORDERED: IBUPROFEN 600 MG TABLET PO PRN (08:34)
--- NOTE | 2019-05-23 09:26 | XRay Report ---
HISTORY: Constipation with abdominal pain FINDINGS: A normal amount of stool is present throughout the colon. The small bowel and stomach are nondistended. There is no apparent soft tissue mass or abnormal calcification within the abdomen. IMPRESSION: Normal exam Interpreted and Authenticated by: Abelardo Wheat 05/23/19
[2019-05-23] MEDS ORDERED: LACTULOSE 20 GM/30 ML ORAL.SOL PO ONE (10:12)
== END 2019-05-23 14:15 | disposition home or self-care (01) | DRG 440 ==
LOC: ED 13:02 → MEDSUR 22:10
PROVIDERS: ADMIT Internal Medicine; ATTEND Internal Medicine